=== PATIENT | male | born 1940 | race Caucasian/White ===

== ENCOUNTER 2016-06-06 09:39 | Inpatient (IN) | payer MEDICARE, OTHER ==
[~2016-06-06] VITALS: Ht 170.2 cm; Wt 80.0 kg
--- NOTE | ~2016-06-06 | ENPV ---
Vascular Upper Extremities Veins Procedure Demographics Patient Name ELIZABETH LOMELI Date of Study 06/06/2016 Patient Number [id number] Gender Male Date of 1940 Age 76 Visit Number [id number] Height 67 Accession Number [id number] Weight 167 Referring Nitish Santos MD Physician Physician Physician Ordering Physician Pily Rubin MD Appliance Fixer Managed Care Provider Jani Rockwell T, [facility] Conclusions Summary TECHNIQUE: The deep and superficial veins of the upper extremity on the right were evaluated with pitts scale utilizing compression and augmentation, and evaluation of phasic flow using spectral Doppler and color flow FINGDINGS: Deep and superficial veins of the right upper extremity show normal color flow and compressibility without thrombosis. IMPRESSION: NEGATIVE RIGHT UPPER EXTREMITY VENOUS DOPPLER. Procedure Type of Study: Veins:Upper Extremities Veins, Upper Extremity Right. Indications for Study:Swelling. Patient Status:STAT. Study Location:ER. Technical Quality:Adequate visualization. - Preliminary reported to:Ling HUDSON in ER 1200. Velocities are measured in cm/s ; Diameters are measured in cm Right UE Vein Measurements 2D and Doppler Measurements + + + + +--------+--------+ !Location !Visualized !Compressibility !Thrombosis !Signal !Reflux ! + + + + +--------+--------+ !IJV !Yes !Yes !None !Phasic ! ! + + + + +--------+--------+ !SCV !Yes !Yes !None !Phasic ! ! + + + + +--------+--------+ !Innominate !Yes !Yes !None !Phasic ! ! + + + + +--------+--------+ !Axillary !Yes !Yes !None !Phasic ! ! + + + + +--------+--------+ !Brachial !Yes !Yes !None !Phasic ! ! + + + + +--------+--------+ !Radial !Yes !Yes !None !Phasic ! ! + + + + +--------+--------+ !Ulnar !Yes !Yes !None !Phasic ! ! + + + + +--------+--------+ !Basilic !Yes !Yes !None !Phasic ! ! + + + + +--------+--------+ !Cephalic !Yes !Yes !None !Phasic ! ! + + + + +--------+--------+ Left UE Vein Measurements 2D and Doppler Measurements + + + + +--------+ + !Location !Visualized !Compressibility !Thrombosis !Signal !Reflux ! + + + + +--------+ + !IJV !Yes !Yes !None !Phasic ! ! + + + + +--------+ + Signature dtt: Ramesh Rangel dtd: 06/06/16 1116 Physician Self Edit
--- NOTE | ~2016-06-06 | HP ---
PATIENT'S NAME: ELIZABETH LOMELI [facility] AGE: 76 Y [address] ROOM: [address] [address] LOCATION: [facility] ADMIT DATE: 06/06/2016 History & Physical DISCHARGE DATE: FAMILY PHYSICIAN: EMA BUCK MD ATTENDING PHYSICIAN: WANDER JOYNER DATE OF SERVICE: PRIMARY CONCERN: "Feeling sick." HISTORY OF PRESENT ILLNESS: This is a 76-year-old male, who is brought into the ER by a family member after the patient has been complaining of feeling sick. The patient reports that for the last 3 days that he has been having nausea and vomiting and has not been able to keep anything down with loss of appetite and progressive weakness since then, such that he has been in bed for the last 3 days. The patient denies fever, also notes some generalized headache for the last couple of days. Family reports that on May 24, 2016, the patient was admitted to [facility] for about 3 days. During which time, he was treated for right upper extremity cellulitis as well as bladder infection, Enterococcus faecalis from the records, and they report that the patient is still currently on antibiotics, which they discharged him home on. Family reports that his presenting symptom right now is similar to what he presented with on May 24, 2016, with swelling of his right upper extremity and just not feeling well with loss of appetite. The patient denies abdominal pain. He denies chest pain. He denies cough. The patient was also seen outside at [facility] by Dr. Avalos for shortness of breath, so family reports that since the month of April, the patient has cruz in the healthcare setting as he is the one currently taking care of his , who is on admission. The patient also notes some dizziness. Denies lightheadedness. Denies any syncope. REVIEW OF SYSTEMS: The 13 elements of review of systems were asked and as documented in the HPI. The others are negative. PAST MEDICAL HISTORY: Includes diabetes type 2, coronary artery disease, essential hypertension, peripheral vascular disease, lumbar spinal stenosis, dyslipidemia, and asthma. PAST SURGICAL HISTORY: Includes right below-knee amputation; CABG, status post stent; surgery to the right hand. SOCIAL HISTORY: PATIENT'S NAME: ELIZABETH LOMELI [facility] AGE: 76 Y [address] ROOM: [id number] [place], [place] [address] LOCATION: [facility] ADMIT DATE: 06/06/2016 History & Physical DISCHARGE DATE: FAMILY PHYSICIAN: EMA BUCK MD ATTENDING PHYSICIAN: WANDER JOYNER The patient lives with his . He is a early. Denies use of alcohol or smoking. FAMILY HISTORY: His mother is alive. She is 97, has some dementia. Father at age of 78 and some heart problem. PHYSICAL EXAMINATION: VITAL SIGNS: In the ER, temperature 101.4, pulse 92, respiratory rate 24, blood pressure 122/56. GENERAL: Reveals an elderly male, who appears older than his stated age. He is alert, awake, oriented x3, not in any form of painful distress. NEUROLOGIC: Cranial nerves 2 through 12 intact bilaterally. Sensory is intact bilaterally. Power is in both upper extremities 5/5, also in both lower extremities. HEENT: Normocephalic, atraumatic. Pupils equal and reactive to light bilaterally. Pharynx is normal. Mucosa is moist. Ears: No obvious ear discharge or drainage. NECK: Supple. No area of tenderness. No lymphadenopathy. CARDIOVASCULAR SYSTEM: Normal S1 and S2. Regular rate and rhythm. CHEST: Decreased breath sounds in bilateral bases. ABDOMEN: Soft, nondistended. No area of tenderness. No palpable organomegaly. Some left lower quadrant tenderness on deep palpation, and he also got lower quadrant hernia. EXTREMITIES: Right below-knee stump. Right upper extremity, right hand, and forearm is obviously swollen. Swelling is more involving the right hand, mildly warm, appears red. No tenderness. SKIN: No rash or skin breakdown. LABORATORY DATA: On admission, ABG: pH of 7.49, pCO2 of 29, pO2 of 59, bicarb 22.1, sat 92. WBC 14.9, H and H are 12.2 and 35.7, platelets 319. Sodium 130, potassium 4.1, chloride 96, CO2 of 23, calcium 9.4, creatinine 1.8, BUN 13, glucose 144. ALT 20, AST 14, albumin 2.5, alkaline phosphatase 56, total bilirubin 0.8, anion gap 15.1, hemoglobin A1c is 8.0. UA: pH 6.0, bacteria few, wbc's 0-2. Procalcitonin 2.56. CRP 21.9. MICROBIOLOGY DATA: Blood culture is pending. Stool for C. diff is negative. Stool for ova and parasite is negative. RADIOLOGY DATA: Chest x-ray, borderline heart stable, nonactive, no pneumonia or CHF. ASSESSMENT AND PLAN: PATIENT'S NAME: ELIZABETH LOMELI [facility] AGE: 76 Y [address] ROOM: [place] [address] LOCATION: [facility] ADMIT DATE: 06/06/2016 History & Physical DISCHARGE DATE: FAMILY PHYSICIAN: EMA BUCK MD ATTENDING PHYSICIAN: WANDER JOYNER This is a 76-year-old male, who comes in with nausea and vomiting. 1. Severe sepsis, present on admission. We will observe the patient in the ICU. His blood pressure, though his systolic is low; however, his MAP is about 70. We will monitor him in the ICU should in case his blood pressure bottoms out, and he will require pressors. The patient has received 1-1/2 L of normal saline bolus. Source of infection right now is really not clear, however, probably could be from his right upper extremity cellulitis possibly, possibly from a pneumonia or even possibly from recurrent urinary tract infection. Cultures are pending. 2. Acute hypoxic respiratory failure, unknown etiology. May be secondary to his chronic obstructive pulmonary disease or may be secondary to a pneumonia. We will try and titrate down on the oxygen. We will continue him on ertapenem and Zyvox. 3. Right upper extremity swelling, possibly this may be from cellulitis. We will get an MRI of his extremity given his prior history of surgery to rule out any osteomyelitis. 4. Diabetes type 2 with hypoglycemia. For now, we will put the patient on some NovoLog sliding moderate scale. 5. Nausea and vomiting, present on admission, unknown etiology. We will try and control this with Zofran, and I will also get a CT of his abdomen and also a CT of his chest to further evaluate for etiology of the nausea, vomiting, and shortness of breath. 6. Coronary artery disease, status post history of CABG with angina, stable, present on admission. 7. Paroxysmal atrial fibrillation, rate controlled. 8. Hyponatremia, present on admission, possibly this may be from nausea. We will correct it. We will put the patient on some normal saline. 9. Acute kidney injury, present on admission. This probably is prerenal from his nausea and vomiting, which has been on for the past 3 days and some diarrhea this morning. We will gently hydrate the patient and monitor his kidney function closely. 10. Chronic obstructive pulmonary disease without exacerbation, stable. He is requiring 3 L of oxygen. We will continue to monitor. The line of management was explained to the patient and family, who are present at bedtime and their questions were answered, and they had no further questions at this time. WANDER JOYNER MD ODO/mahnazl PATIENT'S NAME: ELIZABETH LOMELI [facility] AGE: 76 Y [address] ROOM: [place] [address] LOCATION: [facility] ADMIT DATE: 06/06/2016 History & Physical DISCHARGE DATE: FAMILY PHYSICIAN: EMA BUCK MD ATTENDING PHYSICIAN: WANDER JOYNER /[id number] D: T: 627 HISTORY & PHYSICAL
--- NOTE | ~2016-06-06 | ECHO ---
Transesophageal Echocardiography Report (SCOTTIE) Demographics Patient Name ELIZABETH LOMELI Date of Study 06/08/2016 Patient Number [id number] Visit Number [id number] Date of 1940 Room Number I1597TM Gender Male Number Age 76 year(s) Referring Talbert Trae Henry Head Insulation Board Saw Operator Live [place]anca RVT Physician MD Gerard Au MD Physician Interpreting Marly Au Oil Field Operator Physician MD Supervising Ordering MD/MLP Physician Nurse Stress Desk Lieutenant Conclusions Summary No evidence of valvular vegetations. Mild MAC. The AV is moderately sclerotic with restricted opening. Calcific changes in the non coronary cusp. No obvious vegetations on AV. No AI. MV with mild degenerative changes. Mild MR. TV and PV are grossly normal without any valvular vegetations. Normal LV/RV size and systolic function. Procedure Type of Study SCOTTIE procedure Procedure Date Date: 06/08/2016 Start: 04:34 PM Study Location: Inpatient Portable Technical Quality: Adequate visualization Indications:Endocarditis. Appropriate Use Criteria: 9 Patient Status: Routine HR: 72 bpm BP: 123/59 mmHg Findings Left Atrium There is no thrombus in the left atrial appendage. There is no evidence of patent foramen ovale or atrial septal defect by color Doppler. Miscellaneous The patient was brought to the [facility] lab in the fasting state after informed consent was obtained in the written and verbal format. Bite block was placed by ma. Once adequate anesthesia was obtained with anesthesia guidance with propofol sedation the SCOTTIE probe was placed by me down into the stomach. It was pulled back slightly after a few views were obtained in the transgastric level to the transesophageal position where the majority of the case was carried out. At the end of the case the probe was rotated and withdrawn. Patient tolerated the procedure well. Contractility Score LV regional wall motion:(0-Non visualized 1-Normal 2-Hypokinesis 3-Akinesis 4-Dyskinesis 5-Aneurysm) Signature dtt: CHRIS RODGERS dtd: 06/08/16 1634 Physician Self Edit
--- NOTE | ~2016-06-06 | DS ---
PATIENT'S NAME: ELIZABETH LOMELI [facility] AGE: 76 Y [address] ROOM: [address] [place], [place] [address] LOCATION: [facility] ADMIT DATE: 06/06/2016 Discharge Summary DISCHARGE DATE: 06/11/2016 FAMILY PHYSICIAN: Trae Talbert MD ATTENDING PHYSICIAN: Jessica Gee PRINCIPAL DIAGNOSES: 1. Severe sepsis, secondary to an unknown etiology. 2. Asthma exacerbation. 3. Acute kidney injury, now resolved. 4. Coronary artery disease, status post coronary artery bypass graft, stable. 5. Type 2 diabetes mellitus. 6. Peripheral vascular disease, status post right above-knee amputation. HOSPITAL COURSE: A 76-year-old very pleasant gentleman was brought into the emergency department to the [facility] with the chief complaint of feeling weak and having fever and chills. On initial evaluation, on lab work, he had evidence of severe sepsis with the white count as high as 16. His creatinine was also elevated at that time. Procalcitonin was done and it was at 4.71. A chest x-ray was done, which did not reveal any evidence of pneumonia. A urinalysis was done, which did not reveal any evidence for urinary tract infection. He was volume resuscitated with intravenous fluids, but did not require any pressors. He was started on broad-spectrum antibiotics including vancomycin and ertapenem. Infectious Disease consultation was obtained and he was narrowed down to ertapenem and doxycycline. He progressed well during the course of the hospitalization; and on day of discharge, he was stable to be discharged. His asthma control was not optimal and we started him on inhalation therapy in addition to theophylline and chronic prednisone. His JENNYFER resolved toward the end of the hospitalization. He had an injury to the right head with swelling. A DVT study was done, which excluded any deep venous thrombosis. An Orthopedic consultation was obtained and they recommended Rusty wrap as well as p.r.n. ice, which did help. We were not able to identify any organism from the sputum or from the urine. CT of the chest was done on admission to the hospital showed evidence of previous cardiac surgery, some aortic tortuosity and ectasia, otherwise normal. DISCHARGE MEDICATIONS: Include: 1. Clindamycin 600 mg p.o. 1 time p.r.n. before going to the dentist. 2. Allopurinol 300 mg p.o. everyday. 3. Betamethasone 1 application topical twice daily. 4. Plavix 75 mg p.o. everyday. 5. Fentanyl 25 mg transdermal every 72 hours. 6. Insulin glargine 28 units subcu everyday. PATIENT'S NAME: ELIZABETH OLMELI [facility] AGE: 76 Y [address] ROOM: [place] [address] LOCATION: [facility] ADMIT DATE: 06/06/2016 Discharge Summary DISCHARGE DATE: 06/11/2016 FAMILY PHYSICIAN: Trae Talbert MD ATTENDING PHYSICIAN: Jessica Gee 7. Isosorbide 30 mg p.o. everyday. 8. Metformin 1000 mg p.o. twice daily. 9. Montelukast 10 mg p.o. every night at bedtime. 10. Prednisone 10 mg p.o. twice daily. 11. Terazosin 10 mg p.o. every night at bedtime. 12. Theophylline 300 mg p.o. everyday. 13. Spironolactone 25 mg p.o. everyday. 14. Many Farms 10/325 1 tablet p.o. every 6 hours. 15. Ondansetron 8 mg p.o. every 8 hours p.r.n. for nausea. 16. Artificial Tears. 17. New medications include albuterol q.4 h. p.r.n. inhalation for shortness of breath, Symbicort 160/4.5 mcg inhalation b.i.d. 2 puff, Spiriva 18 mcg 1 capsule inhalation once daily, doxycycline 100 mg p.o. b.i.d. for 4 days. FOLLOW UP: Because of his longstanding uncontrolled asthma for which he has been using theophylline as well as chronic steroids, I would recommend Pulmonary follow up so his asthma medication can be optimized. He also need the sleep study outpatiently to detect any obstructive sleep apnea. DISCHARGE ACTIVITY: As tolerated. DIET: Regular diet. MD LOBITO SOLANO/josef /[id number] d: 06/12/16 0237 t: 06/19/16 1507, DISCHARGE SUMMARY
--- NOTE | ~2016-06-06 | ER ---
PATIENT'S NAME: ELIZABETH OTT [facility] AGE: 76 Y [address] ROOM: [place] [address] LOCATION: GICU ADMIT DATE: 06/06/2016 ER/Outpatient Report DISCHARGE DATE: FAMILY PHYSICIAN: EMA TALBERT MD ATTENDING PHYSICIAN: WANDER JOYNER CHIEF COMPLAINT: General malaise, possible pneumonia. HISTORY OF PRESENT ILLNESS: Mr. Ott has not been feeling well. He was admitted to [facility] few days to weeks ago. He had been having some swelling of his right hand. He was treated for infection of that as well as possible UTI. He had been seeing Dr. Talbert, his primary care physician, in the interim. He had otherwise been doing okay, but just does not feel like he is doing okay now. He has had some vomiting today in addition to pain mostly in his right hand and the right side of his body. He denies any other symptoms. He has been having some fever and chills and some loose stool. He has not really taken anything for this other than his prescription medications, please see attached list. PAST MEDICAL HISTORY: Documented on the record and reviewed by me. SOCIAL HISTORY: Documented on the record and reviewed by me. MEDICATIONS: Documented on the record and reviewed by me. ALLERGIES: DOCUMENTED ON THE RECORD AND REVIEWED BY ME. REVIEW OF SYSTEMS: All systems were reviewed and negative except as noted in the HPI. PHYSICAL EXAMINATION: VITAL SIGNS: Blood pressure is 122/56, pulse is 92, respiratory rate is 24, temperature is 101.4, and SpO2 is 99% on room air. GENERAL: An age-appropriate male, frail appearance, resting on the exam table, in mild distress with cough. No outward signs of pain. NEUROLOGIC: Awake and alert. GCS is grossly 15. Follows commands in all extremities. He is oriented and speaking well. HEENT: Normocephalic and atraumatic. The eyes are PERRL. The oropharynx is PATIENT'S NAME: ELIZABETH OTT [facility] AGE: 76 Y [address] ROOM: [place] [address] LOCATION: [facility] ADMIT DATE: 06/06/2016 ER/Outpatient Report DISCHARGE DATE: FAMILY PHYSICIAN: EMA TALBERT MD ATTENDING PHYSICIAN: WANDER JOYNER grossly clear. No erythema or exudates. Edentulous, upper. CHEST: Heart is tachycardic. Irregularly irregular with no obvious murmurs. Lungs are notable for some mild crackles at the bases, but generally clear. ABDOMEN: Diffusely mildly tender with no focal areas of tenderness or masses. No rebound or guarding. BACK: Grossly normal to inspection and palpation. No CVA tenderness. : Normal male genitalia. No obvious infections. EXTREMITIES: The right upper extremity is notable for marked edema and mild erythema, poorly demarcated and delineated, slightly tender to palpation throughout. Sensation slightly diminished, otherwise normal. Right lower extremity notable for BKA. No evidence of infection of the stump. Remainder of the extremities are unremarkable. SKIN: Otherwise grossly intact. LABORATORY DATA AND X-RAYS: Notable for the following. ESR is 88. Urinalysis not consistent with infection, 0 to 2 wbc's, 0 to 2 epithelial cells, few bacteria, no nitrites on exam. Stool screen negative for Giardia, Cryptosporidium, white blood cells, or blood. CMS is notable for leukocytosis of 14.9, predominant elevation of neutrophils with a left shift. INR is 1.15. Amylase and lipase 28 and 99. Troponin is below detectable threshold. CRP is 21.9. Procalcitonin is 2.56. Blood gas; pH of 7.49, pCO2 is 29, pO2 is 59, bicarb is 22.1, CO2 is 23, FiO2 is 21%, and lactate is 1.6. CMS is notable for creatinine of 1.8, GFR of 37, and sodium of 130. LFTs are grossly unremarkable. EKG reveals what appears to be a right bundle pattern with atrial fibrillation versus sinus tach with multiple PACs. No significant change compared to prior EKG from 06/05/2015. Chest x-ray without focal infiltrate per my read. Right upper extremity venous Doppler is negative per Radiology. IMPRESSION: 1. Severe sepsis. 2. Respiratory alkalosis with metabolic compensation. 3. Tachypnea. 4. Atrial fibrillation, with rapid ventricular response, not hypotensive. 5. Acute kidney injury. EMERGENCY DEPARTMENT COURSE: The patient was seen and evaluated as above. The patient was given Tylenol and fluids. We obtained records from Dr. Talbert and [facility], compared to his current presentation to those. He does have acute kidney injury. Based on his white blood cell count with his elevated ESR, CRP, and procalcitonin, we are presuming sepsis at this point. The exact source is unclear. The right upper extremity does not exactly fit cellulitis and this process has been chronic. DVT was excluded. His abdomen exam is PATIENT'S NAME: ELIZABETH OTT [facility] AGE: 76 Y [address] ROOM: [address] [address] LOCATION: [facility] ADMIT DATE: 06/06/2016 ER/Outpatient Report DISCHARGE DATE: FAMILY PHYSICIAN: EMA TALBERT MD ATTENDING PHYSICIAN: WANDER JOYNER very nonfocal and nonsurgical at this time. With his current renal function as it is, CT is not advised. He was given ertapenem and linezolid for broad- spectrum antibiotics. After 1 L of volume resuscitation, the patient began to develop some worsening crackles at the bases of his lungs and thus bolus resuscitation was ceased. He did have some lower blood pressures at that time, but remained with systolic blood pressures above 90. He will ultimately be taken to the intensive care unit under the care of Dr. Joyner, hospitalist, for further evaluation and treatment of his presumed sepsis. He did get some Zofran for some vomiting in the emergency department as well. All questions were answered prior to admission. MD MILTON HENAO/josef /[id number] d: 06/07/165 t: 06/14/16 2153, OUTPATIENT REPORT
--- NOTE | ~2016-06-06 | CON ---
PATIENT'S NAME: ELIZABETH OTT [facility] AGE: 76 Y [address] ROOM: [address] [address] LOCATION: GICU ADMIT DATE: 06/06/2016 Consultation DISCHARGE DATE: FAMILY PHYSICIAN: EMA BUCK MD ATTENDING PHYSICIAN: WANDER JOYNER DATE OF CONSULTATION: 06/08/2016 CHIEF COMPLAINT: Right upper extremity pain and swelling. HISTORY OF PRESENT ILLNESS: Mr. Ott is a pleasant 76-year-old gentleman who was brought into the emergency room by family member after the patient reports that he is feeling sick. He reports he has chronic medical problems. He reports that for the last 2 days been having nausea and vomiting and not able to keep anything down. The patient reports that approximately 3 to 4 years ago, he had a high pressure injection injury to the right hand that was treated by Dr. Johnston with surgery and subsequently were resolved. Family reports on 05/24, he was admitted to [facility] for approximately three days but he was treated for a UTI and cellulitis of the arm. Despite swelling in the arm, which the patient reports is more swollen than usual. He reports that is otherwise that the right upper extremity is more swollen than usual. REVIEW OF SYSTEMS: A 10-point review of system otherwise mentioned above. The patient states it was musculoskeletal in nature. Pertains to his right upper extremity. There is swelling and cellulitis of the right arm. PAST MEDICAL HISTORY: 1. Type 2 diabetes. 2. Coronary artery disease. 3. Hypertension. 4. Peripheral vascular disease. 5. Lumbar spinal stenosis. 6. Dyslipidemia. 7. Asthma. PAST SURGICAL HISTORY: Includes: 1. Right glenoid below-knee amputation. 2. CABG status post stent and what appeared to be incision and drainage of the patient's right hand wrist and forearm from previous high-pressure injection injury to the right upper extremity. PATIENT'S NAME: ELIZABETH OTT [facility] AGE: 76 Y [address] ROOM: [id number] [place], [place] [address] LOCATION: GICU ADMIT DATE: 06/06/2016 Consultation DISCHARGE DATE: FAMILY PHYSICIAN: EMA BUCK MD ATTENDING PHYSICIAN: OLADEJI,WANDER D FAMILY HISTORY: The patient lives with his . He is a early. He denies any alcohol tobacco or illicit drug use. His mother is alive. She is 97 and has dementia. His father at the age of 78 and had heart problems. MEDICATIONS: Include: 1. Azactam. 2. Deltasone. 3. Duragesic. 4. Dulera. 5. Florastor. 6. Hytrin. 7. Lactated Ringer's. 8. Levemir. 9. Lovenox. 10. NovoLog. 11. Plavix. 12. Protonix. 13. Singulair. 14. Valisone. 15. Vancomycin. 16. Zyloprim. PHYSICAL EXAMINATION: VITAL SIGNS: Temperature 98.2, respirations 22, heart rate is 74, blood pressure 105/50. GENERAL: The patient is awake, alert, and oriented x3. He is in no acute distress. He is actively conversing with me at the bedside. HEENT: Normocephalic and atraumatic. Extraocular movements are intact. PERRLA. Moist mucous membranes. The oropharyngeal airway is clear. NECK: Supple. Trachea is in the midline. CARDIOVASCULAR: Regular rate and rhythm. ABDOMEN: Soft, nontender, and nondistended. CHEST: Normal symmetric respirations bilaterally. MUSCULOSKELETAL: Right upper extremity focal examination: The patient's right upper extremity reveals he is grossly neurologically intact distally. There is swelling and cellulitis present at the forearm, wrist, and hand. The patient is actively able to range his fingers. He has previously well-healed surgical incisions from previous surgical intervention. There was a good capillary refill in the digits. The patient is actively able to flex and extend the digits. There is full range of motion of the elbow, forearm, wrist, and hand. There is no concern for fluctuance or active wound. Compartments of the arm, forearm, and hand are soft. There is edema in the arm, however. PATIENT'S NAME: ELIZABETH OTT [facility] AGE: 76 Y [address] ROOM: [id number] [place], [place] [id number] LOCATION: [facility] ADMIT DATE: 06/06/2016 Consultation DISCHARGE DATE: FAMILY PHYSICIAN: EMA BUCK MD ATTENDING PHYSICIAN: WANDER JOYNER IMAGING: An MRI of the right upper extremity revealed a normal bone marrow signal with diffuse subcutaneous edema, likely consistent with a cellulitis picture. There is no abscess of flexor and extensor tendon of the finger are present and there is no effusion. Advanced degenerative changes were noted in the first carpometacarpal joint of the thumb. LABORATORY VALUES: CBC reveals a hemoglobin of 9.8, hematocrit 29.3, white blood cell count of 11, platelet count 234. INR of 1.15. Chem 7 is sodium 138, potassium 4.1, chloride 108, CO2 20, BUN of 12, creatinine 0.9, glucose 125. Procalcitonin is elevated at 4.71. ESR is 88, glycosylated hemoglobin is 9. CRP is 21.9. Blood cultures reveal evidence of a coagulase-negative Staphylococcus species. IMPRESSION: 1. Right upper extremity cellulitis. 2. History of previous high-pressure injection injury to right hand and underwent surgical incision and drainage of the forearm, wrist, and hand by Dr. Johnston in the past. 3. Severe sepsis, Staphylococcus bacteremia. PLAN: I had a long discussion with the patient at the bedside regarding the right upper extremity. He definitely has a cellulitis picture. I am going to recommend conservative treatment in terms of rest, ice elevation, and a compressive dressing on the right upper extremity. However, cellulite should be treated with antibiotics. By physical examination, I do not appreciate any concern for deep infection or abscess. The MRI is confirmatory. Unfortunately, the patient has other active medical issues. He is currently bacteremic. We will continue to monitor the patient closely. The nursing staff will apply a compressive dressing and elevate the arm and ice it now. He will continue with adequate pain control as needed. Lovenox may be considered for DVT prophylaxis. MD DAMARIS LONDON/josef /[id number] d: 06/08/16 1441 t: 06/08/16 1839, CONSULTATION REPORT
--- NOTE | ~2016-06-06 | OR ---
PATIENT'S NAME: ELIZABETH LOMELI [facility] AGE: 76 Y [address] ROOM: [address] [address] LOCATION: GICU ADMIT DATE: 06/06/2016 OR/Procedure Report DISCHARGE DATE: FAMILY PHYSICIAN: EMA BUCK MD ATTENDING PHYSICIAN: WANDER JOYNER SURGEON: Valdemar Dave MD DRY DIP WORKER: DATE OF PROCEDURE: 06/07/2016 PROCEDURE: Right IJ central venous catheterization. INDICATION: pressor support and IV access. DESCRIPTION OF PROCEDURE: Informed consent was obtained after explaining risks versus benefit. Right IJ and left IJ was inspected using ultrasonography. Right IJ was selected for catheterization. The patient was prepped in sterile fashion. Anesthesia was achieved with lidocaine 1%. Using real-time ultrasonography, trocar needle was entered into the right IJ with the aspiration of the purple oozing blood. A guidewire was advanced through the needle and needle retrieved. Presence of the guidewire in the IJ was confirmed using ultrasonography. Using blade #10, a ashley was made and the dilator was passed over the guidewire and dilatation was achieved. After retrieving the dilator, 3 lumen central venous catheter was advanced over the guidewire and guidewire was retrieved. Venous central line was secured with the sutures and dressing was placed. No immediate complications noted. Chest x-ray has been ordered. MD LOBITO SOLANO/josef /[id number] d: 06/07/16 2344 t: 06/10/16 1505, OPERATIVE SUMMARY
--- NOTE | ~2016-06-06 | ECHO ---
Transthoracic Echocardiography Report (TTE) Demographics Patient Name ELIZABETH LOMELI Date of Study 06/07/2016 Patient Number [id number] Visit Number [id number] Date of 1940 Room Number A3689OZ Gender Male Number Age 76 year(s) Referring Nitish Figueroa Plate [place] Hand [place] Escalante Physician MD Jesus Pérez [facility], Gerard Figueroa RVT Physician Interpreting Carroll Lee MD Chef Head Physician Supervising Ordering Tenzin Diez MD/NUBIA Physician Nurse Stress Learning Technologist Conclusions Contractility Score Summary Normal Left Ventricular contractility was noted. Summary The estimated left ventricular ejection fraction is 70%. The left ventricle is normal in size . Moderate concentric left ventricular hypertrophy. Diastolic assessment reveals Grade I diastolic dysfunction. The right atrium is mildly dilated. There is mild aortic stenosis by the Continuity Equation. The peak velocity is 2.87 m/s, the mean gradient is 18 mmHg, and the valve area based on the continuity equation is 2.31 cm2, stroke volume index is 43.52 ml/m2. Mild tricuspid regurgitation by color Doppler. There is mild pulmonary hypertension. The pulmonary pressure (RVSP) is 41 mmHg. There is mild aortic stenosis by the Continuity Equation. The peak velocity is 2.87 m/s, the mean gradient is 18 mmHg, and the valve area based on the continuity equation is 2.31 cm2, stroke volume index is 43.52 ml/m2. Echo density noted on aortic valve recommend SCOTTIE if clinically indicated. Procedure Type of Study TTE procedure:2D Echocardiogram, M-Mode, Doppler , Color Doppler. Procedure Date Date: 06/07/2016 Start: 10:47 AM Study Location: Inpatient Portable Technical Quality: Fair Indications:Endocarditis and Acute and subacute bacterial endocarditis. Additional Indications:Bacteremia Appropriate Use Criteria: 9 Patient Status: Routine HR: 108 bpm BP: 126/106 mmHg M-Mode/2D Measurements LV Diastolic Dimension: 4.57 cm LV Systolic Dimension: 2.3 cm LV Septum Diastolic: 1.45 cm LV PW Diastolic: 1.43 cm AO Root Dimension: 2.8 cm Cardiac Output: 8.79 l/min LA Dimension: 4 cm LVOT: 2.4 cm LVOT VTI: 18 cm RV Base: 3.93 cm LV Stroke volume: 81.39 ml RV Length: 6.99 cm TAPSE: 1.94 cm TDI-S': 15.5 cm/s Doppler Measurements AV Peak Velocity: 2.87 m/s MV Peak E-Wave: 0.89 m/s AV Peak Gradient: 32.95 mmHg MV Peak A-Wave: 1.08 m/s AV Mean Gradient: 18 mmHg MV E/A Ratio: 0.83 LVOT Peak Velocity: 1.08 m/s MV Deceleration Time: 285 msec TR Velocity:3.08 m/s PV Peak Velocity: 1.64 m/s TR Gradient:37.95 mmHg PV Peak Gradient: 10.76 mmHg Estimated RAP:3 mmHg Estimated PASP: 40.95 mmHg Estimated RVSP: 41 mmHg A' Septal Velocity: 0.07 m/s E' Septal Velocity: 0.05 m/s A' Lateral Velocity: 0.11 m/s E' Lateral Velocity: 0.08 m/s Findings Left Ventricle The left ventricle is normal in size . Moderate concentric left ventricular hypertrophy. Diastolic assessment reveals Grade I diastolic dysfunction. Right Ventricle Normal right ventricle structure and function. Left Atrium Normal left atrial size. Right Atrium The right atrium is mildly dilated. IVC measures .923 cm with inspiratory collapse. Mitral Valve Mild mitral annular calcification. Trivial mitral regurgitation by color Doppler. Aortic Valve There is mild aortic stenosis by the Continuity Equation. The peak velocity is 2.87 m/s, the mean gradient is 18 mmHg, and the valve area based on the continuity equation is 2.31 cm2, stroke volume index is 43.52 ml/m2. Echo density noted on aortic valve recommend SCOTTIE if clinically indicated. Tricuspid Valve Mild tricuspid regurgitation by color Doppler. There is moderate pulmonary hypertension. The pulmonary pressure (RVSP) is 41 mmHg. Pulmonic Valve The pulmonic valve is not well visualized. Pericardial Effusion No evidence of pericardial effusion. Miscellaneous Visualized portions of the aortic root and ascending aorta appear normal in size. Pleural Effusion No evidence of pleural effusion. Contractility Score LV regional wall motion:(0-Non visualized 1-Normal 2-Hypokinesis 3-Akinesis 4-Dyskinesis 5-Aneurysm) Signature dtt: Jesus Hodges (cardio) dtd: 06/07/16 1047 Physician Self Edit
--- NOTE | ~2016-06-06 | CON ---
PATIENT'S NAME: ELIZABETH LOMELI [facility] AGE: 76 Y [address] ROOM: [place] [address] LOCATION: GICU ADMIT DATE: 06/06/2016 Consultation DISCHARGE DATE: FAMILY PHYSICIAN: EMA BUCK MD ATTENDING PHYSICIAN: WANDER JOYNER DATE OF CONSULTATION: 06/08/2016 REFERRING PHYSICIAN: Wander Joyner MD REASON FOR CONSULTATION: Possible sepsis. SUBJECTIVE: Elizabeth is a pleasant 76-year-old male, whom I was asked see today in consultation by Dr. Joyner for possible sepsis. Elizabeth was admitted on 06/06/2016 with complaint of nausea, vomiting, and generalized malaise for several days. He did not have any fever prior to this admission. He was admitted to [facility] for three days. In May, at which time, he was treated for right upper extremity cellulitis, as well as urinary infection with Enterococcus faecalis. He was apparently discharged on Bactrim and Levaquin. More recently, he has been on nitrofurantoin. At the time of admission, he had a white count of 14.9, and a procalcitonin of 2.56. He was assessed as having possible sepsis, with an unknown source. He was treated with appropriate supportive care, i.e., IV fluids, etc., and has improved significantly. He has been on antibiotics since admission, initially linezolid and ertapenem, then vancomycin and aztreonam. PAST MEDICAL HISTORY: Type 2 diabetes, hypertension, peripheral vascular disease, prior right BKA, prior coronary bypass. ALLERGIES: PENICILLINS, CEPHALOSPORINS. CURRENT MEDICATIONS: See the VIVIEN for complete listing. Antibiotics are as noted above. SOCIAL HISTORY: No significant alcohol or tobacco abuse history to my knowledge. FAMILY HISTORY: Significant for heart disease. REVIEW OF SYSTEMS: A complete review of systems is carried out and was remarkable only as noted. PATIENT'S NAME: ELIZABETH LOMELI [facility] AGE: 76 Y [address] ROOM: [place] [address] LOCATION: GICU ADMIT DATE: 06/06/2016 Consultation DISCHARGE DATE: FAMILY PHYSICIAN: EMA BUCK MD ATTENDING PHYSICIAN: WANDER JOYNER He specifically denied any diarrhea or dysuria. OBJECTIVE: GENERAL: He appeared tired but comfortable and in no acute distress. He appeared nontoxic. VITAL SIGNS: Temperature is 36.78, pulse 75, blood pressure 105/50. HEENT: Posterior pharynx clear, no adenopathy or thyromegaly. Cranial nerves are intact. Neck was supple. CHEST: Scattered rales throughout both lungs. CARDIOVASCULAR: Regular rate and rhythm without S3 or S4. There was a 3/6 holosystolic murmur at the left lower sternal border radiating to the apex. ABDOMEN: Soft, nontender, without hepatosplenomegaly or masses. EXTREMITIES: The right BKA site was unremarkable. There was a tiny abrasion on the dorsal aspect of the left first PIP joint of the foot, without any erythema or drainage. The right ahnd was slightly puffy without significant erytghema, warmth or tenderness. NEUROLOGIC: Strength somewhat diminished, no focal weakness. PSYCHIATRIC: Behavior and affect appropriate. LABORATORY DATA: Creatinine 0.9. Liver function tests normal. Hemoglobin A1c 9.0. White count 11.0. Microbiology: Blood cultures 06/08/2016 pending. Blood cultures x2 06/07/2016 no growth to date. Blood cultures 06/06/2016, Staphylococcus aureus in 1/4 bottles. Stool for C diff on 06/06/2016 negative[address] RADIOLOGY: CT of the chest, abdomen, and pelvis on 06/06/2016 essentially unremarkable, without abscess, pneumonia, etc. IMPRESSION: Possible sepsis, unknown etiology: While he did have an elevated white count on admission, and an elevated procalcitonin, he actually has been afebrile and has had negative blood and urine cultures, with unremarkable urinalysis and negative imaging of the chest, abdomen, and pelvis. Therefore, potential source of infection is unknown. It is possible that he had an adverse reaction to one of his medications, possibly one of the recent antibiotics he was given in the outpatient setting. In any event, he seems clinically improved at this time. Given his rather frail status, I think it is reasonable to continue antibiotics for a limited course for possible sepsis, even without confirmation. PLAN: We will continue with ertapenem for another 5 days, i.e., a 7-day course. Assuming he is improving, he could discharge anytime from my standpoint. PATIENT'S NAME: ELIZABETH LOMELI [facility] AGE: 76 Y [address] ROOM: [place] [address] LOCATION: [facility] ADMIT DATE: 06/06/2016 Consultation DISCHARGE DATE: FAMILY PHYSICIAN: EMA BUCK MD ATTENDING PHYSICIAN: WANDER JOYNER I or one of my colleagues will be glad to see him back in the next 1-2 weeks as needed. I am available to answer any questions by phone at [phone]. Thank you for this consultation. CHERRIE PRABHAKAR MD JSS/modl /[id number] CC: Wander Joyner MD d: 06/08/16 1705 t: 06/09/16 0820, CONSULTATION REPORT
[~2016-06-06 09:39] MED LIST: ACETAMINOPHEN650 M1; ALDACTONE25 MG PO; ALLOPURINOL300 MG PO; BACITRACIN OINT30 GM TOP; CLEOCIN150 MG PO; COLACE100 MG PO; DELTASONE10 MG PO; DURAGESIC 50MC50 MCG TOP; GLUCOPHAGE1000 MG PO; IMDUR30 MG PO; LANTUS SOL100 UNIT/1 SUB-Q; LASIX20 MG PO; LEVEMIR FL100 UNIT/1 SUB-Q; MILK OF MA400 MG/5 M PO; MIRALAX17 GM PO; NORCO 10-325 T1 EACH PO; PERCOCET 5-3251 EACH PO; PLAVIX75 MG PO; RANEXA ER500 MG PO; RANEXA1000 MG PO; SINGULAIR10 MG PO; TERAZOSIN HCL10 MG PO; THEO-24300 MG PO; TYLENOL325 MG PO; ZETIA10 MG PO
[2016-06-06 10:58] LABS: HEMATOCRIT 35.7 % (37.0-53.0); HEMOGLOBIN 12.2 g/dL (11.0-16.0); MCH 29.8 pg (27.0-34.0); MCHC 34.2 gm/dL (32.0-36.5); MCV 87.3 fl (83.0-98.0); MPV 9.7 fl (9.4-12.4); PLATELET COUNT 319 K/uL (150-450); RBC 4.09 M/uL (3.50-5.50); RDW-CV 14.1 % (11.9-14.6); WBC 14.9 K/uL (4.0-11.0)
[2016-06-06 11:01] LABS: INR - (THERAPEUTIC) 1.15 (0.92-1.07); PROTIME 12.1 SECONDS (9.8-11.4)
[2016-06-06 11:02] LABS: BICARBONATE 22.1 mmol/L (18.0-23.0); LACTATE 1.6 mEq/L (0.50-1.60); PCO2 29 mmHg (35-45); PO2 59 mmHg (80-90)
[2016-06-06 11:16] LABS: ALBUMIN 2.5 gm/dL (3.5-5.0); ANION GAP 15.1 (10.0-19.0); CALCIUM 9.4 mg/dL (8.5-10.5); CREATININE 1.8 mg/dL (0.6-1.3); POTASSIUM 4.1 mMol/L (3.7-5.1); TOTAL BILIRUBIN 0.8 mg/dL (0.0-1.5); TOTAL PROTEIN 6.2 g/dL (6.0-8.4)
[2016-06-06 11:46] LABS: ABSOLUTE NEUTROPHIL CT (ANC) 11.8 K/uL (1.4-9.0); BANDED NEUTROPHIL # 0.6 K/uL (0.0-0.1); BANDED NEUTROPHILS % 4 %; LYMPHOCYTE # 1.9 K/uL (0.8-4.0); LYMPHOCYTE % 13 %; MONOCYTE # 1.2 K/uL (0.0-1.0); SEGMENTED NEUTROPHIL # 11.2 K/uL (1.4-9.0); SEGMENTED NEUTROPHIL % 75 %
[2016-06-06 12:12] LABS: BILIRUBIN URINE NEGATIVE (NEGATIVE); BLOOD URINE NEGATIVE /UL (NEGATIVE); COLOR URINE YELLOW (YELLOW); GLUCOSE URINE NEGATIVE (NEGATIVE); KETONE URINE 15 mg/dL (NEGATIVE); LEUKOCYTES URINE 25 /UL (NEGATIVE); NITRITE URINE NEGATIVE (NEGATIVE); PROTEIN URINE 30 mg/dL (NEGATIVE); TURBIDITY URINE CLEAR (CLEAR); UROBILINOGEN URINE NORMAL (NORMAL)
[2016-06-06 12:29] LABS: BACTERIA URINE FEW (NEGATIVE); EPITHELIAL URINE 0-2 #/HPF (NEGATIVE); RBC URINE NEGATIVE #/HPF (NEGATIVE); WBC URINE 0-2 #/HPF (NEGATIVE)
[2016-06-06 12:30] LABS: MUCUS URINE 1+ (NEGATIVE)
[2016-06-06] MEDS ORDERED: BETAMETHASONE V60 ML TOP (18:08)
[2016-06-06] MEDS ORDERED: PLAVIX75 MG PO (18:09)
[2016-06-06] MEDS ORDERED: MACROBID100 MG PO (18:09)
[2016-06-06] MEDS ORDERED: ZOFRAN8 MG PO (18:10)
[2016-06-06] MEDS ORDERED: ARTIFICIAL TEAR15 ML OPHTH (18:10)
[2016-06-06 18:22] LABS: CPK 83 IU/L (35-332)
--- NOTE | 2016-06-06 19:13 | NUR ---
Significant Event: Patient is A&O X3, follows all commands, pupils are equal and reactive. SBP have been low 100's-130's, MAP's 60's-80's. Patient is in Afib with HR 80's-low 100's. Patient is on RA with o2 sats mid to upper 90's. Lung sounds are clear and diminished. Patient has been having nausea. Patient voids per urinal. Follow up:
[2016-06-07 00:42] LABS: CPK 78 IU/L (35-332)
[2016-06-07 05:04] LABS: BASOPHIL % 0.3 %; EOSINOPHIL # 0.2 K/uL (0.0-0.5); EOSINOPHIL % 1.1 %; HEMATOCRIT 33.9 % (37.0-53.0); HEMOGLOBIN 11.2 g/dL (11.0-16.0); IMMATURE GRANULOCYTE # 0.1 K/uL (0.0-0.3); IMMATURE GRANULOCYTE % 0.7 %; LYMPHOCYTE # 1.4 K/uL (0.8-4.0); LYMPHOCYTE % 9.2 %; MCH 29.6 pg (27.0-34.0); MCV 89.4 fl (83.0-98.0); MONOCYTE # 1.2 K/uL (0.0-1.0); MONOCYTE % 8.3 %; NEUTROPHIL # (ANC) 11.9 K/uL (1.4-9.0); NEUTROPHIL % 80.4 %; NRBC % 0 /100WBC (0-0.00); RBC 3.79 M/uL (3.50-5.50); RDW-CV 13.9 % (11.9-14.6); WBC 14.8 K/uL (4.0-11.0)
[2016-06-07 05:07] LABS: PLATELET COUNT 249 K/uL (150-450)
[2016-06-07 05:25] LABS: ALBUMIN 2.1 gm/dL (3.5-5.0); ANION GAP 13.8 (10.0-19.0); CALCIUM 8.3 mg/dL (8.5-10.5); CREATININE 1.4 mg/dL (0.6-1.3); MAGNESIUM 1.6 mg/dL (1.8-2.6); POTASSIUM 3.8 mMol/L (3.7-5.1); TOTAL PROTEIN 5.5 g/dL (6.0-8.4)
[2016-06-07 05:29] LABS: TOTAL BILIRUBIN 0.6 mg/dL (0.0-1.5)
--- NOTE | 2016-06-07 05:49 | NUR ---
PT RESTING THIS SHIFT. PIV X2 INTACT AND PATENT WITH NS RUNNING AT 100ML/HR. DECREASED N/V THIS SHIFT BUT PERSISTENT DESPITE ZOFRAN IVP GIVEN X2 THIS SHIFT. DECREASED AMOUNTS OF EMISIS SHIFT HAS PROGRESSED, NO EMESIS SINCE APPROX 2300. BP REMAIN STABLE, SBP 100S-120S, MAPS 70S-80S. FEBRILE AT TIMES. DECREASED UOP NOTED. VOIDS PER URINAL. PULSES IMPROVING SHIFT PROGRESSED. GAURAV LOYA RN
--- NOTE | 2016-06-07 09:40 | NUR ---
PT SCREENED D/T (+) MST. PT DENIES WT LOSS PRIOR TO ADMIT. NO NUTRITION-RELATED DIAGNOSIS AT THIS TIME. WILL ASSIST NEEDED.
[2016-06-07 13:57] LABS: BICARBONATE 22.4 mmol/L (18.0-23.0); LACTATE 0.8 mEq/L (0.50-1.60); PCO2 37 mmHg (35-45); PO2 64 mmHg (80-90)
[2016-06-07 16:59] LABS: HEMATOCRIT 30.3 % (37.0-53.0); MCH 29.7 pg (27.0-34.0); MCV 89.9 fl (83.0-98.0); PLATELET COUNT 215 K/uL (150-450); RBC 3.37 M/uL (3.50-5.50); RDW-CV 14.1 % (11.9-14.6); WBC 14.4 K/uL (4.0-11.0)
[2016-06-07 17:15] LABS: ANION GAP 13.2 (10.0-19.0); BLOOD UREA NITROGEN 11 mg/dL (6-24); CHLORIDE 104 mMol/L (96-110); CO2 24 mMol/L (22-32); CREATININE 1.1 mg/dL (0.6-1.3); POTASSIUM 4.2 mMol/L (3.7-5.1); SODIUM 137 mMol/L (135-145)
[2016-06-07 17:16] LABS: ESTIMATED GFR (MDRD EQUATION) > 60
--- NOTE | 2016-06-07 17:35 | NUR ---
SIGNIFICANT EVENT: PATIENT ALERT, ORIENTED X3. OPENS EYES SPONTANEOUSLY AND TO VOICE. PUPILS EQUAL AND REACTIVE. PATIENT IS HARD OF HEARING. BILATERAL HEARING AIDS IN AT ALL TIMES. PATIENT DENIES ANY NUMBNESS, TINGLING, OR PAIN. PATIENT MEDICATION, FENTANYL PATCH APPLIED PER MD ORDER TO L) FLANK AREA, R) FLANK PATCH REMOED AND DISPOSED OF. PATIENT MOVES ALL 4 EXTREMITIES SPONTANEOUSLY AND TO COMMANDS. GENERALIZED WEAKNESS, EQUAL STRENGTH THROUGHOUT. BELOW THE KNEE AMPUTATION IN R) LOWER EXTREMITY, PRIOR TO THIS HOPSPITALIZATION, NO COMPLICATIONS. PATIENT DENIES ANY HEADACHES. PURPOSEFUL WITH ALL EXTREMITIES. APPROPRIATELY CONVERSATIONAL. PATIENT HAS BEEN IN AFIB RHYTHM, SINUS BEATS AT TIMES, MD AWARE. HR THROUGHOUT MOST OF THE SHIFT 70-80S. AROUND 1400, PATIENT BECAME TACHY CARDIC AND HYPOTENSIVE, DR NUR AWARE, WAS AT BEDSIDE, HR BACK TO BASE LINE NOW. PULSES THREADY THROUGHOUT. GENREALIZED EDEMA R) UPPER EXTREMITY MOST EDEMATOUS. R) IJ INSERTED AT BEDSIDE, (3) LUMEN. LEVOPHED AVAILABLE TO KEEP MAP>65. BP CURRENTLY STABLE. SBP>90 AND MAP>65. LR INFUSING AT 100ML/HR. 500 ML LR BOLUS GIVEN, HYPOTENSION RESOLVED POST BOLUS. AFEBRILE CURRENLTY, MAX TEMP TODAY OF 101.6, NOW 97.5. PATIENT ON 2L NASAL CANNULA, SATS MID TO LOWER 90S. BOWEL SOUNDS PRESENT, NO BM TODAY. DECREASED APETITE NOTED. PATIENT VOIDS PER URINAL, 450 ML OUTPUT. NO NEW SKIN ISSUES NOTED. SCOTTIE IN AM. 0830. ANESTHESIA AWARE. CONSENT FORM TO BE COMPLETED. RISKS AND BENEFITS TO BE COMPLETED. ID CONSULT IN AM
[2016-06-07 17:52] LABS: ABSOLUTE NEUTROPHIL CT (ANC) 13.7 K/uL (1.4-9.0); BANDED NEUTROPHIL # 1.3 K/uL (0.0-0.1); BANDED NEUTROPHILS % 9 %; LYMPHOCYTE # 0.4 K/uL (0.8-4.0); LYMPHOCYTE % 3 %; MONOCYTE # 0.3 K/uL (0.0-1.0); SEGMENTED NEUTROPHIL # 12.4 K/uL (1.4-9.0); SEGMENTED NEUTROPHIL % 86 %
--- NOTE | 2016-06-08 04:21 | NUR ---
Significant Event: Patient is drowsy and difficult to arouse at times. Very hard of hearing. Awakens to voice, otherwise sleeps. No c/o pain. VSS. No family or visitors. Turn q2h. Voids per urinal. NPO since midnight. Follows commands. 1-2L NC, has periods of apnea. 1-2L NC has maintained his O2 sats>90%. Otherwise drops to mid 80's% O2 sats. Follow up: Plan for SCOTTIE this AM.
--- NOTE | 2016-06-08 04:24 | NUR ---
Significant Event: PATIENT ORIENTED X3, FOLLOWS COMMANDS. AWAKENS TO VERBAL/TACTILE STIMULATION. AFEBRILE. EDEMA NOTED TO RIGHT UPPER EXTREMITY. CONTINUES ON 2L PER NASAL CANNULA. POOR APPETITE. BOWEL SOUNDS PRESENT. VOIDING PER URINAL. RIGHT IJ TRIPLE LUMEN, 2 PIV SALINE LOCKED. LR AT 75ML/HR. REPORT GIVEN TO TRISTAN MOISE TO ASSUME CARES. Follow up:
[2016-06-08 04:36] LABS: ANION GAP 14.1 (10.0-19.0); BLOOD UREA NITROGEN 12 mg/dL (6-24); CALCIUM 7.9 mg/dL (8.5-10.5); CHLORIDE 108 mMol/L (96-110); CO2 20 mMol/L (22-32); CREATININE 0.9 mg/dL (0.6-1.3); ESTIMATED GFR (MDRD EQUATION) > 60; POTASSIUM 4.1 mMol/L (3.7-5.1); SODIUM 138 mMol/L (135-145)
[2016-06-08 04:43] LABS: HEMATOCRIT 29.3 % (37.0-53.0); HEMOGLOBIN 9.8 g/dL (11.0-16.0); MCHC 33.4 gm/dL (32.0-36.5); MCV 89.6 fl (83.0-98.0); PLATELET COUNT 234 K/uL (150-450); RBC 3.27 M/uL (3.50-5.50); RDW-CV 13.8 % (11.9-14.6)
[2016-06-08 05:22] LABS: ABSOLUTE NEUTROPHIL CT (ANC) 10.6 K/uL (1.4-9.0); BANDED NEUTROPHIL # 1.4 K/uL (0.0-0.1); BANDED NEUTROPHILS % 13 %; LYMPHOCYTE # 0.3 K/uL (0.8-4.0); LYMPHOCYTE % 3 %; MONOCYTE # 0.1 K/uL (0.0-1.0); SEGMENTED NEUTROPHIL # 9.1 K/uL (1.4-9.0); SEGMENTED NEUTROPHIL % 83 %
--- NOTE | 2016-06-08 09:26 | NUR ---
Significant Event:A/O X 3, VERY [place], even with bilateral hearing aids in use. Glasses on. UP to bathroom and then to the recliner with 2 assist, wheeled walker and gait belt. NSR. R) hand 3+ edema, elevated on a pillow, slighlty red. NPO for SCOTTIE, BM this AM. Voids without problems. NO c/o pain. Scab to the back of the R) elbow. Redness ot bottom, and used Moisture barrier. Complete bath and oral cares. Stump elevated on pillow. Follow up:SCOTTIE this afternoon with Dr MA, [place] is aware.
[2016-06-08 13:09] LABS: BILIRUBIN URINE NEGATIVE (NEGATIVE); BLOOD URINE NEGATIVE /UL (NEGATIVE); COLOR URINE YELLOW (YELLOW); GLUCOSE URINE NEGATIVE (NEGATIVE); KETONE URINE 150 mg/dL (NEGATIVE); LEUKOCYTES URINE NEGATIVE /UL (NEGATIVE); NITRITE URINE NEGATIVE (NEGATIVE); PROTEIN URINE 15 mg/dL (NEGATIVE); SPEC GRAVITY URINE 1.025 (1.003-1.035); TURBIDITY URINE CLEAR (CLEAR); UROBILINOGEN URINE NORMAL (NORMAL)
--- NOTE | 2016-06-08 13:20 | NUR ---
Significant Event:A/O X 3, VERY [place], even with bilateral hearing aids in use. Glasses on. UP to bathroom and then to the recliner with 2 assist, wheeled walker and gait belt. NSR. R) hand 3+ edema, elevated on a pillow, slighlty red. NPO for SCOTTIE, BM this AM. Voids without problems. NO c/o pain. Scab to the back of the R) elbow. Redness ot bottom, and used Moisture barrier. Complete bath and oral cares. Stump elevated on pillow. Follow up:SCOTTIE this afternoon with Dr MA, [employer] is aware. Voided a second time and sample sent down for UA. PT here to transfer with gait belt and wheeled walker back to bed for afternoon nap. R) hand wrappped with MINNIE, elevated on pillows and iced. Swelling has decreased with more wrinkling of the skin in the thumb.
[2016-06-08 13:37] LABS: BACTERIA URINE FEW (NEGATIVE); MUCUS URINE 3+ (NEGATIVE); RBC URINE NEGATIVE #/HPF (NEGATIVE)
--- NOTE | 2016-06-08 14:37 | NUR ---
Introduced self and role of care management to pt. He states [place] lives on the farm in [place]. He does have a but she is currently just admitted to [facility] from having surgery for cancer. He states he has a son nearby and another one down in [place], well total of 5 kids. He states he was down there with her for over 30 days and got rundown. 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 I explained I will follow and see how he does and will get therapy ordered. WIll continue to follow.
--- NOTE | 2016-06-09 04:52 | NUR ---
Significant Event: AOx3. VSS. Sinus rhythm. Placed on 2L/NC while sleeping, lung sounds clear and clear and diminished in bases. Bowel sounds active, tolerating diet well. BM x1 this shift. Voids per urinal, adequate UOP. No new skin changes. Afebrile. R)IJ and PIVx2 intact, LR infusing at 75ml/hr. Follow up: Transfer, continue.
[2016-06-09 04:56] LABS: BLOOD UREA NITROGEN 17 mg/dL (6-24); CALCIUM 7.8 mg/dL (8.5-10.5); CHLORIDE 108 mMol/L (96-110); CO2 25 mMol/L (22-32); CREATININE 0.9 mg/dL (0.6-1.3); ESTIMATED GFR (MDRD EQUATION) > 60; SODIUM 142 mMol/L (135-145)
[2016-06-09 05:04] LABS: HEMATOCRIT 27.4 % (37.0-53.0); HEMOGLOBIN 9.1 g/dL (11.0-16.0); MCH 29.4 pg (27.0-34.0); MCHC 33.2 gm/dL (32.0-36.5); MCV 88.4 fl (83.0-98.0); MPV 10.2 fl (9.4-12.4); PLATELET COUNT 222 K/uL (150-450); RDW-CV 13.8 % (11.9-14.6)
[2016-06-09 05:36] LABS: ABSOLUTE NEUTROPHIL CT (ANC) 15.7 K/uL (1.4-9.0); BANDED NEUTROPHIL # 1.9 K/uL (0.0-0.1); BANDED NEUTROPHILS % 12 %; LYMPHOCYTE # 0.2 K/uL (0.8-4.0); LYMPHOCYTE % 1 %; MONOCYTE # 0.2 K/uL (0.0-1.0); SEGMENTED NEUTROPHIL # 13.8 K/uL (1.4-9.0); SEGMENTED NEUTROPHIL % 86 %
--- NOTE | 2016-06-09 17:28 | NUR ---
Significant Event: Patient is alert and oriented x3. VSS on RA. C-diff sample needed. Up with 1A, walker, and gaitbelt. Daughter in law in room this am. Patient has been calm and cooperative throughout shift. Follow Up: Chest xray in am. Transfer to PCU when able.
--- NOTE | 2016-06-10 03:47 | NUR ---
SIGNIFICANT EVENT: PT DID NOT HAVE ANY SIGNIFICANT CHANGES THROUGHOUT SHIFT. REMAINS A/OX3, BP STABLE ON 2L NC WHILE SLEEPING. DENIES PAIN AND SHORTNESS OF BREATH. FOLLOW UP:
[2016-06-10 04:21] LABS: HEMOGLOBIN 9.3 g/dL (11.0-16.0); MCH 29.9 pg (27.0-34.0); MCHC 33.2 gm/dL (32.0-36.5); PLATELET COUNT 217 K/uL (150-450); RBC 3.11 M/uL (3.50-5.50); RDW-CV 13.9 % (11.9-14.6); WBC 8.6 K/uL (4.0-11.0)
[2016-06-10 04:25] LABS: BLOOD UREA NITROGEN 16 mg/dL (6-24); CHLORIDE 113 mMol/L (96-110); CO2 25 mMol/L (22-32); CREATININE 0.8 mg/dL (0.6-1.3); ESTIMATED GFR (MDRD EQUATION) > 60; SODIUM 144 mMol/L (135-145)
[2016-06-10 05:17] LABS: ABSOLUTE NEUTROPHIL CT (ANC) 7.8 K/uL (1.4-9.0); BANDED NEUTROPHIL # 0.3 K/uL (0.0-0.1); BANDED NEUTROPHILS % 3 %; LYMPHOCYTE # 0.7 K/uL (0.8-4.0); LYMPHOCYTE % 8 %; MONOCYTE # 0.1 K/uL (0.0-1.0); SEGMENTED NEUTROPHIL # 7.6 K/uL (1.4-9.0); SEGMENTED NEUTROPHIL % 88 %
--- NOTE | 2016-06-10 09:00 | NUR ---
A - PT SCREENED D/T LOS. APPETITE POOR AT TIMES. 1-2+ EDEMA. HT: 67" WT: 176# BMI: 26.2. LABS: ACCUCHECK WNL->200, GLU 201, ALB 2.1, CRP 21.9. MEDS: LACTINEX, DOXYCYCLINE, SSI, PROTONIX, PREDNISONE, FLORASTOR, LEVEMIR, INVANZ, NAUSEA. DIET: DIABETIC. INTAKE: SIPS-100% AVG ~50%. EST NEEDS: 7155-3328 KCAL (20-25 KCAL/KG), 80-96 G PRO (1-1.2 G/KG), 2400 ML FLUID (30 ML/KG) D - INADEQUATE NUTRIENT INTAKE AT TIMES R/T DECREASED APPETITE AEB INTAKE RECORD. I - GOAL FOR INTAKE 50-75% BY NEXT ASSESSMENT. WILL ADD GLUCERNA BID TO INC NUTRIENT INTAKE. M/E - WILL MONITOR INTAKE F/U IN 4-6 DAYS.
--- NOTE | 2016-06-10 15:51 | NUR ---
Social visit with pt today. I discussed dc plans and he is thinking he will be going home tomorrow. His son from [place] is coming to get him and then they will go to [place] to see his at [facility]. I discussed his safety at home and did mention skilled care and he states no he will be going home but is ok with [facility]. He states he has Garrison Maurice and Magaly Lambert lined up to be with him during the day and I stated I am also worried at [facility] and do not think he should be alone until he is stronger He did tell me his son Artur can stay with him as well if needed. I then asked about choices for [facility] and he called his son Artur. I then updated Artur on what I do and what I was concerned with. He states he has people lined up during the day and also for [facility] he said a couple meds names that can stay the next week with him at [facility]. Artur thinks [facility] would be a good idea and thru the hospital because they have had it before. Artur also plans on getting him a 4 wheeled walker for him at home and he already has a w/c, walker and ramp. I then called [facility] in and started a referral with them and they can see pt on Monday. I faxed referral and note on the chart for nurse to fax dc orders/meds and face to face on dc. Will continue to follow and assist as needed.
--- NOTE | 2016-06-10 17:56 | NUR ---
I HELPED PUT ON PATIENT'S PROSTHETIC LEG THIS MORNING AND GOT HIM UP TO THE BATHROOM. PATIENT WAS ON 2 LITERS O2 DURING THE NIGHT SO WE TOOK HIM OFF THIS MORNING AND HAD HIM ON ROOM AIR DURING THE DAY. PATIENT RECEIVED 6 UNITS OF INSULING AT LUNCH FOR A BLOOD SUGAR OF 272, HE IS ON THE MILD SLIDING SCALE. PATIENT HAD A VISITOR AROUND 1600 FOR ABOUT AN HOUR. PATIENT HAD TWO BM'S TODAY, I DID NOT WITNESS EITHER OF THEM. THERMOMETER IN ROOM WAS NOT WORKING ORALLY SO I DID AXILLARY THROUGHOUT THE DAY. PATIENT'S RIGHT ARM IS STILL SWOLLEN, HOWEVER HE STATES THE SWELLING HAS GONE DOWN. THE SWELLING IN HIS ARM HAS GONE DOWN A LITTLE DURING THE DAY. PATIENT HAD ICE ON HIS RIGHT ARM TODAY TO HELP WITH PAIN AND SWELLING. PATIENT ALSO HAS A COMPRESSION WRAP ON HIS ARM THAT WAS CHANGED BY THE PA THIS MORNING. THE IV IN PATIENT'S LEFT FOREARM WAS LEAKING SO I REMOVED IT AT APPROXIMATELY 1230, WE USED HIS RIGHT IJ FOR IV ACCESS DURING THE DAY. PATIENT HAS BEEN COUGHING UP SPUTUM THIS AFTERNOON, IT HAS BEEN SMALL AMOUNTS OF SPUTUM. PATIENT HAS BEEN UP TO CHAIR PERIODICALLY DURING THE DAY AND IS CURRENTLY RESTING IN BED. PATIENT'S SON PLANS TO COME SEE HIM TONIGHT.
[2016-06-11 04:30] LABS: BLOOD UREA NITROGEN 14 mg/dL (6-24); CALCIUM 7.4 mg/dL (8.5-10.5); CHLORIDE 114 mMol/L (96-110); CO2 25 mMol/L (22-32); CREATININE 0.8 mg/dL (0.6-1.3); ESTIMATED GFR (MDRD EQUATION) > 60; SODIUM 147 mMol/L (135-145)
[2016-06-11 04:32] LABS: BASOPHIL % 0.3 %; EOSINOPHIL # 0.1 K/uL (0.0-0.5); EOSINOPHIL % 1.6 %; HEMATOCRIT 27.8 % (37.0-53.0); HEMOGLOBIN 9.1 g/dL (11.0-16.0); IMMATURE GRANULOCYTE # 0.1 K/uL (0.0-0.3); IMMATURE GRANULOCYTE % 0.7 %; LYMPHOCYTE # 0.5 K/uL (0.8-4.0); LYMPHOCYTE % 7.1 %; MCH 29.9 pg (27.0-34.0); MCHC 32.7 gm/dL (32.0-36.5); MCV 91.4 fl (83.0-98.0); MONOCYTE # 0.3 K/uL (0.0-1.0); MONOCYTE % 3.5 %; MPV 10.1 fl (9.4-12.4); NEUTROPHIL # (ANC) 6.5 K/uL (1.4-9.0); NEUTROPHIL % 86.8 %; NRBC % 0 /100WBC (0-0.00); PLATELET COUNT 243 K/uL (150-450); RBC 3.04 M/uL (3.50-5.50); RDW-CV 14.1 % (11.9-14.6); WBC 7.5 K/uL (4.0-11.0)
--- NOTE | 2016-06-11 05:38 | NUR ---
Significant Event: Patient is alert/oriented x3. Vital signs are stable. On room air during the day and 2L O2 at night (does not normally wear at home). Denies any pain. Right arm is dressed, dressing C/D/I. Hand continues to be edematous, CSM is WNL. Follow up: Dismiss to home today?
[2016-06-11] MEDS ORDERED: DOXYCYCLINE100 MG PO (10:18)
[2016-06-11] MEDS ORDERED: SPIRIVA HANDIHA1 KIT INH (10:27)
[2016-06-11] MEDS ORDERED: TYLENOL EXTRA500 MG PO (10:28)
[2016-06-11] MEDS ORDERED: PROVENTIL OR V6.7 GM INH (10:33)
[2016-06-11] MEDS ORDERED: SYMBICORT 16010.2 GM INH (10:34)
--- NOTE | 2016-06-11 11:36 | NUR ---
Patient dismissed to home with home health at 1130 with sons. Patient and family deny question or concern of dismissal. Discussed f/u appointments. Home health orders face to face will be faxed. NO butts per protocol by James HUDSON.
== END 2016-06-11 11:30 | disposition home health service (06) | DRG 871 ==
LOC: GMED 09:39 → GPCU 12:53 → GICU 12:53 → GPCU 13:38 → GICU 14:13 → GPCU 06-10 05:35
PROVIDERS: Emergency Medicine; Internal Medicine; ADMIT Hospitalist
PROC: B246ZZZ Ultrasonography of Right and Left Heart (ICD-10-PCS; principal; 2016-06-07)
PROC: B543ZZA Ultrasonography of Right Jugular Veins, Guidance (ICD-10-PCS; principal; 2016-06-07)
PROC: 05HM33Z Insertion of Infusion Device into Right Internal Jugular Vein, Percutaneous Approach (ICD-10-PCS; principal; 2016-06-07)
PROC: B246ZZ4 Ultrasonography of Right and Left Heart, Transesophageal (ICD-10-PCS; 2016-06-08)
DX: A41.9 Sepsis, unspecified organism (principal); J18.9 Pneumonia, unspecified organism; J96.01 Acute respiratory failure with hypoxia; N17.9 Acute kidney failure, unspecified; E87.3 Alkalosis; E11.649 Type 2 diabetes mellitus with hypoglycemia without coma; J44.1 Chronic obstructive pulmonary disease with (acute) exacerbation; E87.1 Hypo-osmolality and hyponatremia; I48.0 Paroxysmal atrial fibrillation; J45.901 Unspecified asthma with (acute) exacerbation; L03.113 Cellulitis of right upper limb; R65.20 Severe sepsis without septic shock; I25.10 Atherosclerotic heart disease of native coronary artery without angina pectoris; I10 Essential (primary) hypertension; I73.9 Peripheral vascular disease, unspecified; N30.90 Cystitis, unspecified without hematuria; Z89.521 Acquired absence of right knee; Z95.1 Presence of aortocoronary bypass graft
CPT/HCPCS: J0696; J1335; J1644; J1650; J2020; J2405; J3370; J7030; J7040; J7050; J7120; J7512

== ENCOUNTER 2016-06-16 13:24 | Inpatient (IN) | payer MEDICARE, OTHER ==
[~2016-06-16] VITALS: Ht 170.2 cm; Wt 76.8 kg
--- NOTE | ~2016-06-16 | DS ---
PATIENT'S NAME: ELIZABETH LOMELI [facility] AGE: 76 Y [address] ROOM: [address] [place], [place] [address] [place] [facility] [place] DATE: 06/17/2016 Discharge Summary DISCHARGE DATE: 06/21/2016 FAMILY PHYSICIAN: Trae Talbert MD ATTENDING PHYSICIAN: Evelyne Chase ADMITTING DIAGNOSES: 1. Sepsis with etiology uncertain. 2. Toxic encephalopathy, resolved. 3. Acute hypoxic respiratory failure with chronic underlying chronic obstructive pulmonary disease. 4. Questionable concern for adrenal insufficiency. 5. Chronic lower back pain. 6. History of coronary artery disease, status post CABG. 7. History of peripheral vascular disease, status post right BKA. 8. Diabetes mellitus type 2 with hypoglycemia. 9. Constipation. HOSPITAL COURSE: Please reference any admitting data to the history and physical as dictated by Dr. Evelyne Chase. This is a 76-year-old male, who presented to the emergency room after recent hospitalization for sepsis, came back with nausea, vomiting, and a fever, and borderline hypotension. He was given IV fluids and started on vancomycin and meropenem and admitted into the hospital for further evaluation. A right upper quadrant ultrasound ruled out cholecystitis. A CT of the head ruled out any acute intracranial abnormalities. Initial white blood cell count was normal. Cultures were obtained. Vital signs were monitored. He did spike a fever of 101.7 overnight. Blood pressure normalized with IV fluids. He still required oxygen. By the next morning, he became encephalopathic. CT of head was negative for acute intracranial abnormalities. He was given reversal Narcan x2 doses, and his fentanyl patch was discontinued and started on IV Decadron for concerns of adrenal insufficiency. He aroused without complication and was somewhat clear than previous. He continued to make good progress, although still had some nausea and vomiting, which was very mild. A gastric emptying study was obtained and was negative. We weaned his Decadron to taper from IV to oral. He tolerated this well. We had titrated his anti- glycemic regimen with Levemir and oral metformin accordingly. On the last day, his blood sugars did drop to 73 and 60 respectively with a venous draw of 53. This was corrected. His Levemir dose was decreased, and his metformin was stopped on discharge. Restorative cares were added for strengthening during his time here. DVT prophylaxis was maintained with pneumatic compression devices and often mobilization. PATIENT'S NAME: ELIZABETH LOMELI [facility] AGE: 76 Y [address] ROOM: [address] [place], [place] [address] [place] [facility] [place] DATE: 06/17/2016 Discharge Summary DISCHARGE DATE: 06/21/2016 FAMILY PHYSICIAN: Trae Talbert MD ATTENDING PHYSICIAN: Evelyne Chase Addendum to above culture data remained negative. His counts were monitored. He had a mild shift in his bands, however, did not have any further fevers, and after 3 days, antibiotics were discontinued. He continued to remain afebrile during his stay. Laboratory findings were unremarkable. The patient was discharged without antibiotics. LABORATORY FINDINGS: Pertinent positive data: Lactate initially was 0.90. Procalcitonin level was 0.10 and 0.26 respectively. CRP level was 7.0. Amylase, lipase, liver functions were normal. A.m. cortisol level on day after admission was 2.1. TSH was normal. Urinalysis was unremarkable. Blood cultures and urine cultures were negative. CBC showed normal white blood cell count on 06/17/2016, and there was a shift in his bands with 18%, number declining next day to 6%; hemoglobin 9.3 to 10.9; platelets normal. Chemistry panel most recently, glucose of 53; BUN of 23; creatinine of 1.0, normal during his stay; sodium 142; potassium 3.5; chloride of 108; CO2 of 23. Calcium 8.6. Magnesium 2.4. Phosphorus 0.8. GFR greater than 60 through the entire stay. RADIOLOGIC IMAGING: Gastric emptying study was normal. Right upper quadrant ultrasound, no acute findings. Gallbladder and biliary tree within normal limits. MRI of the right upper extremity showed generalized nonspecific soft tissue edema in the right hand and wrist. No definable abscess. There is no evidence of osteomyelitis. Imaging had improved since previous MRI of the right upper extremity on 06/06/2016. CT of the head, stable, negative. CT of the thorax showed dependent atelectasis, trace effusions, slight interstitial prominence, possible early edema. No evidence of pneumonia. Chest x-ray showed cardiomegaly with small bilateral effusions. No evidence of failure or pneumonia. DISCHARGE MEDICATIONS: 1. Allopurinol 300 mg p.o. every day. 2. Betamethasone 1 application topically twice daily to the penis. 3. Clopidogrel 75 mg p.o. every day. 4. Prednisone 5 mg p.o. twice daily, dose reduced. 5. Colace 100 mg p.o. twice daily. 6. Fentanyl 25 mcg every 72 hours transdermal, prescription written. 7. Lantus 20 units subcutaneous every day. 8. NovoLog as per moderate scale subcutaneous before meals and at bedtime PATIENT'S NAME: ELIZABETH LOMELI [facility] AGE: 76 Y [address] ROOM: [place] [address] [place]: [facility] [place] DATE: 06/17/2016 Discharge Summary DISCHARGE DATE: 06/21/2016 FAMILY PHYSICIAN: Trae Talbert MD ATTENDING PHYSICIAN: Evelyne Chase with associated blood sugar checks before each meal and at bedtime. 9. Isosorbide mononitrate 30 mg p.o. every day. 10. Stop metformin. 11. Singulair 10 mg p.o. every night at bedtime. 12. Terazosin 10 mg p.o. every night at bedtime. 13. Theophylline 300 mg p.o. every other day. 14. Spiriva 2 puffs inhalation every day. 15. Tylenol 1000 mg p.o. every 8 hours as needed for mild pain rated 1 to 3. 16. Gackle 10/325 mg 1 tablet p.o. every 6 hours as needed for moderate pain to 4 to 6. 17. Dulcolax 10 mg per rectum every day as needed. 18. Glucagon 1 mg subcutaneous for hypoglycemia as per protocol. 19. Glucose 16 g p.o. for hypoglycemia as per protocol. 20. Milk of magnesia 30 mL p.o. every day as needed for constipation. 21. Zofran 8 mg p.o. every 8 hours as needed for nausea. 22. MiraLAX 17 g p.o. every day as needed. 23. Albuterol HFA inhaler one puff inhalation every 4 hours as needed for shortness of breath. 24. Spironolactone 25 mg p.o. every day. 25. Clindamycin 600 mg p.o. one time prior to dental work. 26. Artificial tears 1 to 2 drops to each eye as needed for dry eyes. 27. Symbicort 160/4.5 mcg 2 puffs inhalation twice daily. DISCHARGE INSTRUCTIONS: The patient will be discharged to [facility] He will undergo long-term care along with associated therapies of occupational and physical therapy to continue to evaluate and treat the patient as indicated. His weightbearing status is as tolerated. His prosthesis for his right [id number] amputation should be applied and on at all times with activity with significant fall precautions. The patient should follow up with his primary care provider, Dr. Trae Talbert, in 2 weeks. I did speak with Dr. Talbert on the phone and updated him about the patient's stay during his hospitalization. We do ask that they continue to monitor his blood sugars before meals and at bedtime and as needed and to call Dr. Talbert if his blood glucose falls below 60 or greater than 300. His rehab potential is fair. His discharge potential is fair. The patient and the family are well aware of the condition and prognosis. The above line of management was discussed with the family, and they stated complete understanding. All questions were answered with satisfaction. Total discharge timing was greater than 30 minutes. PATIENT'S NAME: ELIZABETH LOMELI [facility] AGE: 76 Y [address] ROOM: [place] [address] [place] [facility] [place] DATE: 06/17/2016 Discharge Summary DISCHARGE DATE: 06/21/2016 FAMILY PHYSICIAN: Trae Talbert MD ATTENDING PHYSICIAN: Evelyne Chase AMADOR RAE APRN, APRN FOR MD MAYITO BARLOW/josef /[id number] CC: Trae Talbert MD d: t: 06/22/16 0957, DISCHARGE SUMMARY
--- NOTE | ~2016-06-16 | ER ---
PATIENT'S NAME: ELIZABETH LOMELI [facility] AGE: 76 Y [address] ROOM: [address] [place], [place] [address] [place] [facility] [place]: 06/16/2016 ER/Outpatient Report DISCHARGE DATE: FAMILY PHYSICIAN: EMA BUCK MD ATTENDING PHYSICIAN: Salvatore STUBBS Admission date and time documented in the medical record. I saw the patient at 1340 hours. CHIEF COMPLAINT: Increasing weakness over the past 4 days, fever of 102 today, fall out of bed, failure to thrive, will not eat, hypotensive with a blood pressure 95/55. HISTORY OF PRESENT ILLNESS: This patient is a 76-year-old male, who during the period of June 06 to June 11 was in the hospital with pneumonia and sepsis. He was discharged from the hospital on . He has had a downhill course since that time at home. He has had increased weakness over the past 4 days since he has been discharged from the hospital. He has no appetite. He refuses to eat. He has been drinking some fluids. He was noted to have a temperature of 102 at home today. He was given Tylenol on arrival to the emergency room by a private vehicle. His temperature was 98. He has had some chills, but no rigors. He denies chest pain, shortness of breath, abdominal pain, nausea, vomiting, or diarrhea. He has had no urinary symptomatology. He was hypotensive with a blood pressure 95/55 on arrival to the emergency department. IV fluids were started. The patient was given a bolus of 500 mL of normal saline, then started 150 mL an hour, and his blood pressure came up above 100 to 114 range systolic. His pulse has ranged around mid 70s to mid 80s. He is awake and responsive. Follows commands. He is a little bit somnolent at times. He will awake to voice and his name and again follows commands. Denies any head pain, neck pain, spine pain. No eyes, ears, nose, throat pain. He fell out of bed but really did not have any syncope. He is little lightheaded and dizzy, but again no syncope. No other trauma other than the fall out of bed. He is not getting around very well at home because of the weakness. He has also had a past history of above-knee amputation of the right leg. He lives alone. At this point, he is unable to take care of himself. He does have a history of insulin-dependent diabetes mellitus type 2. He has had no history of TIA, CVA, or seizure disorder. No psych history or issues. HOME MEDICATIONS: See attached medication list. ALLERGIES: ASPIRIN, PENICILLIN, CECLOR, LEVAQUIN. PATIENT'S NAME: ELIZABETH LOMELI [facility] AGE: 76 Y [address] ROOM: [address] [place], [place] [address] [place] [facility] [place]: 06/16/2016 ER/Outpatient Report DISCHARGE DATE: FAMILY PHYSICIAN: EMA BUCK MD ATTENDING PHYSICIAN: Salvatore STUBBS SOCIAL HISTORY: Nonsmoker, nondrinker. SIGNIFICANT PAST MEDICAL HISTORY: Atherosclerotic ischemic heart disease with coronary artery disease; insulin- dependent diabetes mellitus type 2; peripheral vascular disease; sepsis; pneumonia; hypertension; lumbosacral stenosis; dyslipidemia; COPD, asthmatic type; gout; peripheral neuropathy; osteomyelitis; degenerative osteoarthritis; benign prostatic hypertrophy. OPERATIONS: Cataract extraction, left knee surgery, sinus surgery, central line placement, right above-knee amputation, three-vessel coronary bypass graft, cardiac catheterization with PTCA and stenting, right hand surgery. REVIEW OF SYSTEMS: All systems reviewed by me are negative with the exception of those discussed in the history of present illness. PHYSICAL EXAMINATION: VITAL SIGNS: Temperature 98 tympanic, pulse 82 and regular, respirations 16, blood pressure 95/55, O2 saturation on 4 L of oxygen per nasal cannula is 91%. HEAD: Normocephalic. No abrasion, contusion, laceration, swelling of the scalp or face. EYES: Extraocular muscles intact. PERRL. Sclerae and conjunctivae clear, nonicteric. EARS: Clear TMs bilaterally. NOSE: Clear. THROAT: Clear. He has vomitus on his chin and on his shirt. NECK: No nuchal rigidity. No thyromegaly or cervical adenopathy. No tenderness. SPINE: Negative. LUNGS: Clear breath sounds. No rales, rhonchi, or wheezes. Breath sounds are a little distant. HEART: Regular. Pulses are palpable. The patient is not tachycardic or tachypneic. ABDOMEN: Soft, nondistended, nontender. Good bowel tones. No organomegaly or abnormal mass palpable. EXTREMITIES: The patient has a right above-knee amputation. No peripheral cyanosis. Does have some edema. No other deformities. Moves all extremities. NEURO: The patient is awake, alert, cooperative. No lateralizing signs. VASCULAR: Intact. SKIN: Clear. No skin eruptions or rash. PATIENT'S NAME: ELIZABETH LOMELI [facility] AGE: 76 Y [address] ROOM: [address] [address] [place] [facility] [place]: 06/16/2016 ER/Outpatient Report DISCHARGE DATE: FAMILY PHYSICIAN: EMA BUCK MD ATTENDING PHYSICIAN: Salvatore STUBBS LABORATORY DATA AND X-RAYS: White count was 8200, 64 segs, 20 lymphs, 11 monos, 2 eos, 1 baso, hemoglobin was 10.4, with hematocrit 32.1 platelet count was 290,000. PTT was 25, pro- time was 12.6, INR 1.2. CMS was normal except for a low CO2 content of 21, elevated glucose 122, low calcium of 7.7, low total protein, albumin, and A/G ratio. Amylase and lipase were normal. CPK was elevated 694, most likely from the fall out of bed; CK-MB was normal at 2.7; troponin was 0.052. CRP was elevated 7. proBNP was 1623. Urine was clear other than 15 ketones. Venous pH was 7.36. Serum ammonia level was normal at 17. Serum acetone was positive 1:8. Procalcitonin was 0.26. Lactate was 0.9. Chest x-ray showed cardiomegaly, no congestive failure, no pneumonia, had some scarring. Chest x-ray was read by Radiology. CT scan of the chest without contrast is being performed and results are pending. EMERGENCY DEPARTMENT COURSE: We did give the patient 500 bolus of normal saline. Put him at 150 mL an hour. His pressure did improve from a systolic of 95 to a systolic of 114. His pulse rate remained stable. IMPRESSION: 1. Failure to thrive. The patient will not eat as no appetite. He has ketones in his urine and ketones in his blood at a ratio 1:8. 2. Generalized weakness. Fell out of bed today. He has some accompanying nausea with vomiting and a reported fever of 102 at home. The patient lives alone, not able to care for himself, was recently in the hospital with sepsis and pneumonia, and it appears like he is having a poor recovery from that serious illness. 3. Reported temperature elevation of 102. He is afebrile here in the emergency department. He has a normal CBC, normal lactate, and slightly elevated procalcitonin of 0.26. His urine is clear, and his chest x-ray showed no pneumonia. 4. Insulin-dependent diabetes mellitus type 2. The patient has normal pH of 7.36. His initial blood glucose on arrival by Accu-Chek was 60. He was given one amp of D50, it brought his blood sugar up to 127 level. Unsure whether he has taken any insulin at home since he has not been eating. 5. Atherosclerotic ischemic heart disease with coronary artery disease. He is status post three-vessel coronary bypass graft and has had previous coronary stents. 6. Peripheral vascular disease with a history of a right above-knee amputation. 7. History of hypertension. 8. History of chronic obstructive pulmonary disease, asthmatic type with low oximetry 91% on 4 L of oxygen per nasal cannula. PATIENT'S NAME: ELIZABETH LOMELI [facility] AGE: 76 Y [address] ROOM: [address] [address] [place] [facility] [place]: 06/16/2016 ER/Outpatient Report DISCHARGE DATE: FAMILY PHYSICIAN: EMA BUCK MD ATTENDING PHYSICIAN: Salvatore STUBBS PLAN: I did discuss this patient with Dr. Stubbs, hospitalist. The patient will be admitted to the hospital. The patient will be admitted to [facility] for further evaluation and treatment. The patient will most likely need placement because he is unable to take care of himself. I believe the family understands and in agreement to talk with Care Management and arrange placement. MD CHRISTIANE CARTWRIGHT/mahnazl /[id number] d: 06/16/[id number] t: 06/20/16606, OUTPATIENT REPORT
--- NOTE | ~2016-06-16 | HP ---
PATIENT'S NAME: ELIZABETH LOMELI [facility] AGE: 76 Y [address] ROOM: [address] [place], [place] [id number] LOCATION: [facility] [place] ADMIT DATE: 06/16/2016 History & Physical DISCHARGE DATE: FAMILY PHYSICIAN: EMA BUCK MD ATTENDING PHYSICIAN: Salvatore CHILDS DATE OF SERVICE: CHIEF COMPLAINT: Nausea, vomiting, and fever. HISTORY OF PRESENT ILLNESS: The patient is a 76-year-old gentleman with past medical history of peripheral vascular disease, complicated with osteomyelitis, status post left below-knee amputation; diabetes mellitus; coronary artery disease, status post CABG; asthma, on chronic prednisone, who presents here with nausea, vomiting, and fever. The patient was recently admitted to our hospital for sepsis of unknown origin. He was admitted on and discharged on June 11. During his stay, he was treated with broad-spectrum antibiotic, has had a CT abdomen and chest that was unrevealing, and had an MRI of his right hand without contrast, that was unrevealing. The patient was discharged home in stable condition. However, at home, the patient started to have some nausea, vomiting, and intermittent fever and chills. T-max of 100.2 today at home. The patient is currently staying by himself, and he is not able to take care himself and reports of one episode of fall out of his bed. Daughter is at bedside and voiced that she is worried about her father as he is not able to take care of himself; he is not able to take his medication appropriately, feed himself, and take care of his daily activities of life. The patient reports that he gets multiple episodes of nausea and vomiting, and stated that he has not been taking most of his medications for close to a week now. He reports intermittent fever and chills and generalized weakness and nonbloody nausea and vomiting. He denies any chest pain, worsening shortness of breath, diarrhea, hematemesis, tarry stool, seizure-like activity, and change in vision. MEDICAL HISTORY: Peripheral vascular disease; diabetes mellitus type 2; coronary artery disease; asthma/COPD, on chronic steroids. SURGICAL HISTORY: CABG and right below-knee amputation. FAMILY HISTORY: Noncontributory. PATIENT'S NAME: ELIZABETH LOMELI [facility] AGE: 76 Y [address] ROOM: [address] [place], [place] [address] LOCATION: [facility] [place] ADMIT DATE: 06/16/2016 History & Physical DISCHARGE DATE: FAMILY PHYSICIAN: EMA BUCK MD ATTENDING PHYSICIAN: Salvatore CHILDS SOCIAL HISTORY: He lives by himself currently. His is currently in a long term facility after Whipple procedure. Denies smoking and drinking. MEDICATIONS: Please see MAR. REVIEW OF SYSTEMS: All systems have been reviewed and are negative except for what is mentioned in the HPI. PHYSICAL EXAMINATION: VITAL SIGNS: Temperature 101.7, blood pressure 127/56, pulse of 80, respiratory rate of 16, saturating 95 on 3 L. HEAD: Mild bruising over his forehead. Normocephalic. EYES: Extraocular muscle intact. SKIN: Warm to touch. NOSE: No nasal discharge. EAR: Hearing aid present. NECK: No JVD. HEART: A grade 2 systolic murmur heard. Regular rate and rhythm. LUNGS: Clear to auscultation bilaterally. ABDOMEN: Mild right upper quadrant tenderness. Bowel sounds present. EXTREMITIES: Right below-knee amputation. MUSCULOSKELETAL: Right hand erythema and swollen, warm to touch, mild tenderness on flexion of his fingers. CHECK VIEWER: Alert and oriented x3. Motor and sensory grossly intact. LABORATORY DATA: Initial blood glucose level 60, currently 153. Troponin of 0.052, hemoglobin of 10.4, hematocrit of 32.1, white blood cell count of 8.2. BUN of 9, creatinine of 1.1, potassium of 3.7, CO2 of 21. AST, ALT, alkaline phosphatase, total bilirubin within normal limits. INR of 1.2. UA shows ketones of 15. CRP of 7 and prolactin level of 0.26. IMAGING DATA: CT chest shows no signs of infiltrates suggesting pneumonia. ASSESSMENT AND PLAN: The patient is a 76-year-old gentleman with past medical history of coronary artery disease, diabetes mellitus, peripheral vascular disease, asthma, on chronic steroids, who presents here with a few days' history of intermittent fever, chills, nausea, and vomiting. On initial evaluation, blood glucose of 60, CRP of 7, and temperature of 101.7. The patient has mild right upper quadrant pain. The patient also exhibits right hand erythema, warmth, and PATIENT'S NAME: ELIZABETH LOMELI [facility] AGE: 76 Y [address] ROOM: [address] [place], [place] [address] LOCATION: [facility] [place] ADMIT DATE: 06/16/2016 History & Physical DISCHARGE DATE: FAMILY PHYSICIAN: EMA UBCK MD ATTENDING PHYSICIAN: Salvatore CHILDS swollen with mild pain on flexion of fingers. Etiology in this case is unknown yet. On last admission, the patient had an extensive workup including SCOTTIE, CT chest, abdomen, and MRI without contrast of hand, which showed no signs of infection. The patient was also seen by ID during stay. However, I suspect the patient has hiding some occult infection. I suspect infection is coming from his hand. The patient has a history of right hand accident, however, now his hand is erythematous, warmth to touch, and I suspect he might have some underlying osteomyelitis underneath. His last investigation was with MRI without contrast on June 06. However, we will acquire MRI of hand with and without contrast to better evaluate for osteomyelitis. Also, we will acquire right upper quadrant ultrasound to rule out cholecystitis, especially with a history of nausea and vomiting. Also, the patient has prednisone 10 mg b.i.d., that he supposed to take, however, has not been taking this medication for a while due to his decreased activity of daily life, that is affected by he is living by himself and not able to taking care of himself and also his current nausea and vomiting. I suspect the patient might have underlying adrenal insufficiency with current not using his prednisone. We will start dexamethasone 4 mg IV t.i.d. 1. Sepsis. Etiology cholecystitis versus right hand osteomyelitis. Right upper quadrant ultrasound and right hand MRI with and without contrast are pending. Blood culture is pending. We will start the patient on vancomycin and meropenem. We will follow the patient clinically. 2. Intractable nausea, vomiting, etiology most likely secondary to cholecystitis or adrenal insufficiency. We will acquire imaging of right upper quadrant. We will also start the patient on dexamethasone 4 mg IV t.i.d. We will check cortisol level in a.m. We will hold the patient's chronic prednisone 10 mg b.i.d. 3. Dehydration. We will continue IV fluid. 4. Hypoglycemia, etiology most likely secondary to adrenal insufficiency and poor oral intake. We will hold his diabetic medication. Currently on D5 half-normal saline. Accu-Chek serially. 5. Coronary artery disease, status post CABG. Continue aspirin and statin. The patient denies any chest pain. Troponin of intermediate level initially. Etiology most likely secondary to demand. We will repeat troponin in the morning. 6. Peripheral vascular disease. Continue Plavix and statin. 7. Protein-calorie malnutrition. Dietitian will see him in the morning. We will treat underlying etiology. 8. Deconditioning. PT and OT. 9. Failure to thrive. We will try to fix the underlying etiology, and I hope and believe that if the source of infection is controlled, the patient might improve. 10. Asthma. Albuterol as needed. Continue theophylline and currently on dexamethasone. I have personally reviewed the patient's medical record including but not PATIENT'S NAME: ELIZABETH LOMELI [facility] AGE: 76 Y [address] ROOM: [place] [address] LOCATION: [facility] [place] ADMIT DATE: 06/16/2016 History & Physical DISCHARGE DATE: FAMILY PHYSICIAN: EMA BUCK MD ATTENDING PHYSICIAN: Salvatore CHILDS limited to blood work and radiology report. Total time spent with patient is greater than 70 minutes, more than 50% of the time is spent in direct patient's care and patient's consultation. Case reviewed with the patient, nursing staff. All questions were answered to the patient and daughter's satisfaction. NAZ SILVESTRE MD AD/modl /[id number] D: [id number] T: 600 HISTORY & PHYSICAL
[~2016-06-16 13:24] MED LIST changes: +ARTIFICIAL TEAR15 ML OPHTH; +BETAMETHASONE V60 ML TOP; +DOXYCYCLINE100 MG PO; +MACROBID100 MG PO; +PROVENTIL OR V6.7 GM INH; +SPIRIVA HANDIHA1 KIT INH; +SYMBICORT 16010.2 GM INH; +TYLENOL EXTRA500 MG PO; +ZOFRAN8 MG PO
[2016-06-16 15:17] LABS: ALBUMIN 2.2 gm/dL (3.5-5.0); ALK PHOS 47 IU/L (33-138); ALT 12 IU/L (12-78); ANION GAP 13.7 (10.0-19.0); AST 27 IU/L (10-40); BLOOD UREA NITROGEN 9 mg/dL (6-24); CALCIUM 7.7 mg/dL (8.5-10.5); CHLORIDE 108 mMol/L (96-110); CO2 21 mMol/L (22-32); CPK 694 IU/L (35-332); CREATININE 1.1 mg/dL (0.6-1.3); ESTIMATED GFR (MDRD EQUATION) > 60; POTASSIUM 3.7 mMol/L (3.7-5.1); SODIUM 139 mMol/L (135-145); TOTAL BILIRUBIN 0.4 mg/dL (0.0-1.5)
[2016-06-16 15:23] LABS: TOTAL PROTEIN 4.9 g/dL (6.0-8.4)
[2016-06-16 15:35] LABS: BASOPHIL % 0.5 %; EOSINOPHIL # 0.2 K/uL (0.0-0.5); EOSINOPHIL % 1.9 %; HEMATOCRIT 32.1 % (37.0-53.0); HEMOGLOBIN 10.4 g/dL (11.0-16.0); IMMATURE GRANULOCYTE # 0.2 K/uL (0.0-0.3); IMMATURE GRANULOCYTE % 2.7 %; LYMPHOCYTE # 1.7 K/uL (0.8-4.0); LYMPHOCYTE % 20.4 %; MCH 29.9 pg (27.0-34.0); MCHC 32.4 gm/dL (32.0-36.5); MCV 92.2 fl (83.0-98.0); MONOCYTE # 0.9 K/uL (0.0-1.0); MONOCYTE % 10.8 %; MPV 9.6 fl (9.4-12.4); NEUTROPHIL # (ANC) 5.2 K/uL (1.4-9.0); NEUTROPHIL % 63.7 %; NRBC % 0 /100WBC (0-0.00); PLATELET COUNT 290 K/uL (150-450); RBC 3.48 M/uL (3.50-5.50); RDW-CV 14.9 % (11.9-14.6); WBC 8.2 K/uL (4.0-11.0)
[2016-06-16 15:56] LABS: PROTIME 12.6 SECONDS (9.8-11.4); PTT 25 SECONDS (25-32)
[2016-06-16 15:59] LABS: BILIRUBIN URINE NEGATIVE (NEGATIVE); BLOOD URINE NEGATIVE /UL (NEGATIVE); COLOR URINE YELLOW (YELLOW); GLUCOSE URINE NEGATIVE (NEGATIVE); KETONE URINE 15 mg/dL (NEGATIVE); LEUKOCYTES URINE NEGATIVE /UL (NEGATIVE); NITRITE URINE NEGATIVE (NEGATIVE); PROTEIN URINE NEGATIVE (NEGATIVE); TURBIDITY URINE CLEAR (CLEAR); UROBILINOGEN URINE NORMAL (NORMAL)
--- NOTE | 2016-06-16 18:24 | NUR ---
Pt is 76 y/o male admit for failure to thrive for hospitalist. Pt alert and oriented x3. Has many allergies-see chart. Red and yellow bracelets on. Red sock on left foot. 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 Has prosthesis in room. Son at bedside and has been helping take care of pt. Pt wears bilat hearing aids and glasses. Pt's is currently at [facility] for rehab but normally they live together at home. Has hx CABG,htn,hypercholest,stents,edema Left leg,gout, DM,COPD,SOB w activity,asthma,chronic back pain,generalized weakness. Pt has poor appetite and states he feels a little depressed his is so far away at this time.
--- NOTE | 2016-06-17 05:25 | NUR ---
Pt arrived on floor at 1730 for Failure to thrive. Very weak. In and out of hospitals. 2100 pt was tremoring and had BS of 73. D50 given amp. x1. Returned to noraml parameters. Has no appetite to eat or drink. Diabetes. R) BTK amputation - stump intact. Prosthetic in room. 2nd toe of left foot missing. 3L of O2. Nausea with multiple episodes of emesis. Zofran given with no emesis following. IVF at 75ml/hr. IV to L) wrist - good BR. Temp on assess. 101.7. MD notified. Tylenol given. Temp returned to normal. Started on merepenam and vanco. TELE with no calls. IV protonix. ACCU q 4hours. CT negative. Will have MRI this AM with and without contrast to qureshi hand/wrist. PT/OT. Will also have a RUQ u/s this AM. Skin very fragile with right hand very swollen and red. Pt. appears to be in good spirits despite condition.
[2016-06-17 05:34] LABS: HEMOGLOBIN 10.5 g/dL (11.0-16.0); MCH 29.8 pg (27.0-34.0); MCHC 32.8 gm/dL (32.0-36.5); MCV 90.9 fl (83.0-98.0); MPV 9.5 fl (9.4-12.4); PLATELET COUNT 264 K/uL (150-450); RBC 3.52 M/uL (3.50-5.50); RDW-CV 14.6 % (11.9-14.6)
[2016-06-17 05:57] LABS: ALBUMIN 2.2 gm/dL (3.5-5.0); ANION GAP 14.4 (10.0-19.0); BLOOD UREA NITROGEN 10 mg/dL (6-24); CALCIUM 7.8 mg/dL (8.5-10.5); CHLORIDE 109 mMol/L (96-110); CO2 22 mMol/L (22-32); CREATININE 0.9 mg/dL (0.6-1.3); ESTIMATED GFR (MDRD EQUATION) > 60; PHOSPHORUS 3.3 mg/dL (2.5-4.9); POTASSIUM 4.4 mMol/L (3.7-5.1); SODIUM 141 mMol/L (135-145)
[2016-06-17 06:15] LABS: ABSOLUTE NEUTROPHIL CT (ANC) 6.8 K/uL (1.4-9.0); BANDED NEUTROPHIL # 1.4 K/uL (0.0-0.1); BANDED NEUTROPHILS % 18 %; LYMPHOCYTE # 1.1 K/uL (0.8-4.0); LYMPHOCYTE % 14 %; SEGMENTED NEUTROPHIL # 5.4 K/uL (1.4-9.0); SEGMENTED NEUTROPHIL % 67 %
--- NOTE | 2016-06-17 14:03 | NUR ---
Met patient and daughter Shayna this morning. I introduced myself and explained my role with the CM department. Patient was being taken down for an MRI so I only spoke to him for a brief moment. I spent about 30 mins talking with Shayna and getting a history of patient's recent hospitalizations. Per Shayna patient's has been at [facility] for the past 2 months. Patient stayed in an apartment there for the first 5 weeks, then he became ill, so family brought him back to [place]. Since then he has been in and out of the hospital with nausea and vomiting as his main complaints. He has been at [facility] and [facility]. The family, including patients at [facility], think it would be best for patient to go to a residential facility for a few weeks to get stronger before returning home. They state he did have home health care after his last hospitalization, but was only seen approximately 2 times because he was always feeling to sick to have therapy. The family states patient is not in agreement with going to a residential facility and he gets very angry whenever it is mentioned. Patient's is tentatively scheduled for discharge from [facility] on June 29 and she is planning on staying at a residential facility in [place] before transitioning to home. The family states she wants to stay at [facility], but they do not know if [facility] has made a referral for her there. They would like to see if they could get Mike there too. I will contact [facility] to see if they have any rooms available. I explained to Shayna that this stay is an observation stay so I will need to look at his past hospitalizations to see if he has the 3 overnight qualifying stay in the past 30 days for Medicare to help cover the first 20 days of skilled. Family is aware of this criteria and they do think he has had his qualifying stay. I will try to confirm this by looking at his record here at [facility]. I did call [facility] and they do not think [facility] has contacted them in regards to patient's . It sounds like they do not have a female bed available at this time, but they will have a male bed early next week. I will fax Nedra the patient's demographic patient so she has a name and then I will follow up on Monday.
--- NOTE | 2016-06-17 15:35 | NUR ---
D: PATIENT VITAL SIGNS STABLE PATIENT AFEBRILE. Patient was confused and difficult to arouse this am. Fentanyl patch removed and narcan given x 2 IV with excellent results. Patient has been much more alert since narcan, up with therapy tolerating excellent. Patient IV continues to infuse without difficulty. [place] given x1 with relief. Patient intake and output adequate and patient had a bm today.
--- NOTE | 2016-06-17 15:39 | NUR ---
Pierson given at 0804.
--- NOTE | 2016-06-18 04:18 | NUR ---
Pt. AA&OX3. 2 assist. Very pleasant and cooperative. Vital signs stable. IV L) wrist/thumb with IVF at 75ml/hour. IV antibx. Last tylenol given early AM. Much more alert today than yesterday. Did not sleep well through the night - a lot of tossing and turning. ACCU checks [id number]. Insulin given every ACCU check. R) BTK amputation. Wears prothesis and uses walker. Walks to the BR and would rather not use bedpan. Right hand looks better with much less reddness and swollen. Respositioned often.
[2016-06-18 06:02] LABS: HEMATOCRIT 27.2 % (37.0-53.0); HEMOGLOBIN 9.3 g/dL (11.0-16.0); MCH 29.8 pg (27.0-34.0); MCHC 34.2 gm/dL (32.0-36.5); MCV 87.2 fl (83.0-98.0); MPV 10.1 fl (9.4-12.4); PLATELET COUNT 302 K/uL (150-450); RBC 3.12 M/uL (3.50-5.50); RDW-CV 14.3 % (11.9-14.6)
[2016-06-18 06:25] LABS: ANION GAP 12.9 (10.0-19.0); CALCIUM 7.8 mg/dL (8.5-10.5); CHLORIDE 109 mMol/L (96-110); CO2 22 mMol/L (22-32); ESTIMATED GFR (MDRD EQUATION) > 60; POTASSIUM 3.9 mMol/L (3.7-5.1); SODIUM 140 mMol/L (135-145)
[2016-06-18 06:27] LABS: BLOOD UREA NITROGEN 16 mg/dL (6-24)
[2016-06-18 06:49] LABS: BANDED NEUTROPHIL # 0.5 K/uL (0.0-0.1); BANDED NEUTROPHILS % 6 %; LYMPHOCYTE # 0.5 K/uL (0.8-4.0); LYMPHOCYTE % 6 %; MONOCYTE # 0.5 K/uL (0.0-1.0); SEGMENTED NEUTROPHIL # 7.5 K/uL (1.4-9.0); SEGMENTED NEUTROPHIL % 83 %
--- NOTE | 2016-06-18 14:49 | NUR ---
Significant Event:up to bathroom x1, using urinal a couple times, BS 250-07, 358-11, increased levemir and Glucophage to start tonight with supper, IV saline locked-encouraged patient to drink more fluids, Restarted IV in right FA, VSS, a bit unsteady once when up, 477 in IVF before d/c, Nancy at 1350 for low back pain, polite and cooperative with cares Follow up:
--- NOTE | 2016-06-19 03:44 | NUR ---
Significant Event: Patient alert and oriented X4. Forgetful at times. Son at bedside for the evening because of weather. Up with 1-2 person assist walker and gait belt. R) BKA and L) 2nd toe amputation. Uses prosthesis when up. 1 NOrco given at bedtime for pain and has denied need for pain meds since. Slept very well this shift. States he was exhausted. IV to R) forearm infusion NICCI and fluids at 50ml. Q4H accuchecks, 298-6 units, 252- 6 units, 160-2 units. REcieved vanco. IV has great blood return. Vitals stable and on room air. R) hand still swollen but better. Numbness and tingling to bilateral hands yet. Telemetry on no calls. Follow up: Monitor pain
[2016-06-19 06:23] LABS: HEMATOCRIT 27.8 % (37.0-53.0); HEMOGLOBIN 9.3 g/dL (11.0-16.0)
[2016-06-19 06:32] LABS: BLOOD UREA NITROGEN 16 mg/dL (6-24); CALCIUM 7.8 mg/dL (8.5-10.5); CO2 22 mMol/L (22-32); CREATININE 0.8 mg/dL (0.6-1.3); ESTIMATED GFR (MDRD EQUATION) > 60; POTASSIUM 4.1 mMol/L (3.7-5.1)
[2016-06-19 06:34] LABS: ANION GAP 12.1 (10.0-19.0); CHLORIDE 116 mMol/L (96-110); SODIUM 146 mMol/L (135-145)
--- NOTE | 2016-06-19 16:25 | NUR ---
Significant Event:up to bathroom x2 unable to have BM, [place] 1 tab 0836, VSS, 840 in PO including prune juice, 750 po urine + 2 voids, BS 07-175 2 units, 11-184 2 units, 15-196 2 units, IV SL, walked in halls, will give Miralax yet today Follow up:
--- NOTE | 2016-06-20 04:51 | NUR ---
Significant Event: Patient alert and oriented X4. Forgetful at times. Repositions self often. Has R) BKA and L) 2nd toe amputaiton. Uses prosthetic, with walker and gait belt. ONe assist. IV to R) FA saline locked. Vitals stable and on room air. R) hand swollen, but better than on admission. Voiding per urinal. Son at bedside. ACHS accuchecks. Fell out of bed on 06/15. Working with PT. Has own walker in room (red). Betamethasone cream to penis. Belly distended and given miralax to help with BM. Follow up: Monitor for BM
[2016-06-20 06:07] LABS: BLOOD UREA NITROGEN 22 mg/dL (6-24); CALCIUM 7.9 mg/dL (8.5-10.5); CHLORIDE 114 mMol/L (96-110); CO2 23 mMol/L (22-32); CREATININE 0.8 mg/dL (0.6-1.3); ESTIMATED GFR (MDRD EQUATION) > 60; MAGNESIUM 2.1 mg/dL (1.8-2.6); SODIUM 145 mMol/L (135-145)
--- NOTE | 2016-06-20 13:13 | NUR ---
0730 Consult received indicating patient will need a group home placement for a short period of time before returning home. 0805 Contacted Nedra at [facility] to see if they have a male bed available as I faxed her patient's demographics last Monday. Nedra states she does have a male bed, but over the weekend they found out one of their staff has a male family member who is also needing placement so they may accept him instead of Mike. I faxed over all of Mike's information to her and she will review it and make a decision. I also faxed over patient's information to [facility], [facility], and [facility]. At 1105 I met with patient and sons Candelaria and Elba. Patient is in agreement with going to a group home facility for a short staff. He is hoping that he and his will get to be in the same facility when she discharges from [facility]. I let them all know that I faxed information and made referrals to all 4 nursing homes here in [place]. I explained the process to them and informed Mike that staff from the nursing homes may come and assess him. I encouraged the family to contact [facility] and find out when they will be making referrals for patient's spouse. At 1210 I received a phone call from Trevon MANZANO with [facility]. He has visited with patient and son Rosa Isela and he has a bed available for him. Trevon also said that they are in the process of remodeling a room and this should be ready by time patient's discharges from [facility] so Trevon is willing to look at her information too. He states he did explain to the family that he will have to evaluate patient's needs due to her recent cancer treatment to see if they can meet her needs at their facility as well. Son oRsa Isela stated he was going to call [facility] and ask them to send information to Trevon at [facility]. I notified Anselmo Prieto APRN following patient that [facility] has accepted patient. Anselmo thinks patient will be ready for discharge tomorrow. I will talk with Rosa Isela again and make sure they agree to [facility]. Will contiue to follow.
--- NOTE | 2016-06-20 14:54 | NUR ---
Diabetes center note: 0945 In review of patient's record, Med Recon. shows that patient was taking Lantus 28 units and Metformin 1000 mg BID. at home. A1C 9 % Patient was not in the room at the time of visit, son at bedside, who lives in [place], [place] states that he is assisting with patient's care at this time. Diabetes Management Booklet provided and a Diabetes Survival Skills checklist and son states that he and patient will review questions and CDE will stop back later today to assess educational needs. 1345 CDE returned to room and again patient was not in the room but son states that he and patient had completed the Diabetes Survival Skills checklist and they gave a copy to the nurse. When asked if they had any questions, son denies at this time and states patient gets his necessary supplies that he needs, denies needing any further assistance at this time. Plans for temporary placement to a nursing facility within the next fews days. Encouraged to notify us if further questions or concerns regarding diabetes management.
--- NOTE | 2016-06-20 17:06 | NUR ---
Significant Event: Patient is alert and oriented x3. Forgetful at times. VSS and on RA. Had gastric emptying study this AM. Now on a diabetic diet. Up with SBA. R)BKA, Left 2nd toe amputation. Tele on, no calls. Accuchecks AC/HS. Aloe vesta to the right hand daily. Denies pain. Did have a BM today- MOM was given. Started on colace. [facility] at 1300. Follow Up: Transfer tomorrow at 1300.
--- NOTE | 2016-06-21 04:28 | NUR ---
Pt. AA&OX3. Forgetful at times. VSS. RA. Diabetic Diet. Up with SBA. Tele on with no calls. ACCU checks ACHS. No insulin given this shift. PRN norco given at 0. Slept well through the night. Plans to go to [facility] tomorrow at 1300.
--- NOTE | 2016-06-21 10:47 | NUR ---
1025 received a phone call from Kory at [facility] wanting to know if we can plan discharge at 1100. I came to the floor at [address] Peterson and Anselmo Prieto APRN and we can plan discharge at 1130. I called Kory back at [phone] and told him 1130. Will fax discharge orders once signed by doctor.
[2016-06-21 12:04] LABS: ANION GAP 14.5 (10.0-19.0); BLOOD UREA NITROGEN 23 mg/dL (6-24); CALCIUM 8.6 mg/dL (8.5-10.5); CHLORIDE 108 mMol/L (96-110); CO2 23 mMol/L (22-32); ESTIMATED GFR (MDRD EQUATION) > 60; MAGNESIUM 2.4 mg/dL (1.8-2.6); POTASSIUM 3.5 mMol/L (3.7-5.1); SODIUM 142 mMol/L (135-145)
[2016-06-21 12:05] LABS: PHOSPHORUS 0.8 mg/dL (2.5-4.9)
--- NOTE | 2016-06-21 13:08 | NUR ---
Transfer note:Patient was admitted 06/16/16 with nausea, vomiting, fever. Had sepsis, cholecystitis, right hand osteomyelitis, dehydration, hypoglycemis, corornary artery disease, status post CABG, peripheral vascular disease, failure to thrive, asthma, depression. Does have a right below knee amputation, with prosthesis. He is alert and oriented. Is hard of hearing, has hearing aides. Is able to put on prosthesis himself. Is a stand by assist with his own wheeled walker. Is able to do adl's. Last BM was 06/20/16. Does have occasional problems with hypoglycemia. Meds were adjusted today. Cooperative with cares.
== END 2016-06-21 13:37 | DRG 871 ==
LOC: GMED 13:24 → GMSU 16:54
PROVIDERS: Emergency Medicine; Hospitalist; Internal Medicine; ADMIT Internal Medicine
DX: A41.9 Sepsis, unspecified organism (principal); G92 Toxic encephalopathy; J96.21 Acute and chronic respiratory failure with hypoxia; E44.0 Moderate protein-calorie malnutrition; K81.9 Cholecystitis, unspecified; E27.40 Unspecified adrenocortical insufficiency; E46 Unspecified protein-calorie malnutrition; M86.9 Osteomyelitis, unspecified; I25.10 Atherosclerotic heart disease of native coronary artery without angina pectoris; I73.9 Peripheral vascular disease, unspecified; J44.9 Chronic obstructive pulmonary disease, unspecified; J45.909 Unspecified asthma, uncomplicated; Z87.01 Personal history of pneumonia (recurrent); Z95.1 Presence of aortocoronary bypass graft; Z89.511 Acquired absence of right leg below knee; M54.5 Low back pain; K59.00 Constipation, unspecified; E11.649 Type 2 diabetes mellitus with hypoglycemia without coma; R54 Age-related physical debility; Z68.26 Body mass index [BMI] 26.0-26.9, adult
CPT/HCPCS: A9541; A9577; C9113; G0237; G0378; J1100; J1644; J2185; J2310; J2405; J3370; J7030

== ENCOUNTER 2016-07-13 10:30 | Observation (INO) | payer MEDICARE, OTHER ==
[~2016-07-13] VITALS: Ht 170.2 cm; Wt 74.5 kg
--- NOTE | ~2016-07-13 | DS ---
PATIENT'S NAME: ELIZABETH LOMELI [facility] AGE: 76 Y [address] ROOM: [place] [address] LOCATION: [facility] [place] ADMIT DATE: 07/13/2016 Discharge Summary DISCHARGE DATE: 07/15/2016 FAMILY PHYSICIAN: Ema Buck MD ATTENDING PHYSICIAN: Ema Buck FINAL DIAGNOSES: 1. Cellulitis of right hand. 2. History of traumatic oil injection injury to the hand three years ago. 3. History of methicillin-resistant Staphylococcus aureus to right hand in the past. 4. Asthma. 5. Chronic obstructive pulmonary disease. 6. Diabetes mellitus, type 2. 7. Chronic prednisone therapy. 8. Coronary artery disease. 9. Stable angina pectoris. 10. Gout. 11. Chronic low back pain. 12. Peripheral arterial disease. HOSPITAL COURSE: This elderly white male was admitted to the hospital after I saw him in the office with a marked swollen red right hand. In the past, he had presented with infection similar to this with an MRSA infection of the hand. I admitted him to the hospital, and put him on IV vancomycin. I got a Pharmacy consultation, and had him seen by the [facility] working with Dr. Johnston, Orthopedic surgeon/Hand surgeon. Please see notes in the chart and progress notes. The patient improved markedly here in the hospital with IV vancomycin. It was felt that he reached maximal hospital benefit, and I did not feel he needed to go out on further IV vancomycin or an oral agent. DISCHARGE INSTRUCTIONS: He was dismissed from the hospital on date shown in improved conditions, to follow up and see me in one week. He is to be seen earlier if he has fever, chills, or other problems. He has been set up to see Dr. Johnston in the office per his recommendation. DISCHARGE MEDICATIONS: As mentioned, dismissed on the med list shown. EMA BUCK MD PATIENT'S NAME: ELIZABETH LOMELI [facility] AGE: 76 Y [address] ROOM: [place] [address] LOCATION: [facility] [place] ADMIT DATE: 07/13/2016 Discharge Summary DISCHARGE DATE: 07/15/2016 FAMILY PHYSICIAN: Ema Buck MD ATTENDING PHYSICIAN: Ema Buck DRIVER SERVICE TECHNICIAN/modl /[id number] d: 07/21/16 0016 t: 08/06/16 1203, DISCHARGE SUMMARY
--- NOTE | ~2016-07-13 | CON ---
PATIENT'S NAME: ELIZABETH LOMELI [facility] AGE: 76 Y [address] ROOM: [address] [address] LOCATION: [facility] [place] ADMIT DATE: 07/13/2016 Consultation DISCHARGE DATE: FAMILY PHYSICIAN: EMA TALBERT MD ATTENDING PHYSICIAN: EMA TALBERT CHIEF COMPLAINT: Right hand swelling and numbness. HISTORY OF PRESENT ILLNESS: Elizabeth is a 76-year-old male, a patient of Dr. Talbert, who was admitted to the hospital by Dr. Talbert for cellulitis of the right hand is seen for an orthopedic consultation today in 3221 at [facility]. He does have a history of an oil injection injury approximately 3 years ago with subsequent cellulitis and MRSA and surgery with Dr. Johnston, and he has had a good result since. He developed swelling in the last approximately 30 hours with increased pain as a mild secondary concern, the swelling and stiffness of that right thenar eminence and particularly the right thenar webspace between the first and second metacarpals along with some numbness is his more pressing concern. He does not have significant pain with range of motion in his phalanges. He does not have any tendon dysfunction that he is aware of. He does have significant diabetes. He has had an amputation and does have a prosthesis that he ambulates on on his legs. He does use a wheelchair in the evenings. PAST MEDICAL HISTORY: Reviewed. MEDICATIONS: 1. Singulair 10 mg daily. 2. Lasix 20 mg daily. 3. Spironolactone 25 mg daily. 4. Metformin 1000 mg 1 twice daily. 5. Plavix 75 mg daily. 6. Theophylline 300 mg extended release 1 daily. 7. Terazosin 10 mg once daily. 8. Zofran 8 mg p.r.n. 9. Prednisone 10 mg 1 twice daily. 10. BD Pen Needle. 11. Gerry. 12. Allopurinol 300 mg daily. 13. Isosorbide mononitrate 30 mg extended release. 14. Fentanyl transdermal patch. 15. He is also on IV vancomycin upon admission to the hospital under Dr. Talbert' care along with his admit order medications. PATIENT'S NAME: ELIZABETH LOMELI [facility] AGE: 76 Y [address] ROOM: [address] [address] LOCATION: [facility] [place] ADMIT DATE: 07/13/2016 Consultation DISCHARGE DATE: FAMILY PHYSICIAN: EMA TALBERT MD ATTENDING PHYSICIAN: EMA TALBERT PAST SURGICAL HISTORY: Significant for the previous amputation of the leg as well as surgery 3 years ago for that and I and D and injection oil injury with a dorsal webspace incision noted, which is old and well healed, no drainage at all. He does have a history of coronary artery bypass graft. OBJECTIVE: GENERAL: Elizabeth is a 76-year-old male, he is alert, oriented, well developed, well nourished. He is seated in the bed at the [facility]. He does not appear to be in acute distress. MUSCULOSKELETAL: He does have swelling present approximately 30-50% larger than the contralateral hand. The swelling is in the right radial border region of the hand thenar eminence and the webspace. He does not have significant ulnar-sided swelling. His phalanges does have chronic degenerative changes. There is some firmness in the webspace. The thenar eminence is not particularly tight. There is no evidence of any compartment syndrome. He has no pain with extension, active or passive, of the phalanges. There is no evidence of an infection in the extensor or flexor tendon sheath regions. He does have a history of a lower extremity amputation and prosthesis as noted above. ASSESSMENT: 1. Right hand cellulitis, particularly in the webspace of the 1st and 2nd metacarpals. 2. History of an oil injection injury approximately 3 years ago, previous patient of Dr. Johnston surgically with a history of methicillin- resistant Staphylococcus aureus apparently as well. 3. Type 2 diabetes. 4. Prosthesis of the lower extremity for amputation. 5. Coronary artery bypass graft, coronary artery disease. PLAN: We discussed the options with him in detail. At this point, there is not an acute indication for surgery as he does not have any infection in the sheath. The options include giving the antibiotics a chance to work and proceeding with irrigation and debridement if necessary versus proceeding with an irrigation and debridement now. We will also discuss with Dr. Johnston to get his expert opinion from standpoint of hand surgery as well as from standpoint of previous patient of his. The fact that he does use a wheelchair at times, there is also a consideration for his mobility along with the prosthesis and again the prosthesis on and off with that hand. Certainly, it would be better for him to avoid surgery from the standpoint of mobilization and overall health. He does have peripheral artery disease along with the diabetes and a history of the previous oil injury, so he is definitely at high risk for complications in this hand. We discussed this in detail, and we will PATIENT'S NAME: ELIZABETH LOMELI [facility] AGE: 76 Y [address] ROOM: [address] [address] LOCATION: [facility] [place] ADMIT DATE: 07/13/2016 Consultation DISCHARGE DATE: FAMILY PHYSICIAN: EMA TALBERT MD ATTENDING PHYSICIAN: EMA TALBERT continue to follow him. He will let the nurses know or call us if his symptoms increase significantly. BERNICE SETHI FOR MD PIPO RUCKER/modl /[id number] CC: Ema Talbert MD d: 07/13/16 2104 t: 08/09/16 1713, CONSULTATION REPORT
--- NOTE | 2016-07-13 12:27 | NUR ---
Pt is 76 yo [address] Mccormick's office this morning. Patient's recently underwent a very large surgery for stomach cancer that involved removing more than just 2/3 of her stomach. She was in [place] for the surgery, then went to [facility] for rehab, then went to [facility] here in [place]. Patient was with her while she was in [place]. He did get a pneumonia while there. He then actually went to [facility] as well for some rehab for 2 weeks. He was just released on Monday, July 09. 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 Patient was hospitalized in May of 2016 for sepsis, etiology unk, pt says it was for his hand at that time as well. patient's right hand is edematous and moderate erythema. no drainage noted at this time. patient does use his hands to use his w/c which is his mode of transportation when he doesn't have his prosthesis on. patient did have nausea and then actually did vomit approx 75-100 ml of bile type liquid during interview. Education is given as documented. patient is very pleasant to visit with. states he has been for 57 years. Does appear to be a little depressed when he talks about his due to her recent cancer and surgery. pneumatics are on left leg per student nurse. fall and allergy bracelets are on. call light is within reach. patient denies needs at this time. report is given to TRISTAN Womack.
[2016-07-13 13:54] LABS: ALBUMIN 3.1 gm/dL (3.5-5.0); BLOOD UREA NITROGEN 13 mg/dL (6-24); CHLORIDE 109 mMol/L (96-110); CO2 23 mMol/L (22-32); CREATININE 0.8 mg/dL (0.6-1.3); ESTIMATED GFR (MDRD EQUATION) > 60; PHOSPHORUS 3.2 mg/dL (2.5-4.9); SODIUM 141 mMol/L (135-145)
--- NOTE | 2016-07-13 18:01 | NUR ---
Significant Event: PT ALERT AND ORIENTED. VSS ON RA, AFEBRILE. RBKA, PROSTHETIC. AMBULATES WITH SUPERVISION, CANE. DENIES PAIN. R HAND IS SWOLLEN, RED. XRAY DONE THIS AFTERNOON. STARTED ON IV VANCO. IV TO L FA, NS @ TKO. ADA DIET. ACHS, SUPPER WAS 71. PT C/O FEELING NAUSEATED. MD CURRENTLY HERE TO ADDRESS. UA NEEDED, PT C/O BURNING WITH URINATION. Follow up: [facility] FOR SAFETY, OBTAIN UA
[2016-07-13 21:38] LABS: BILIRUBIN URINE NEGATIVE (NEGATIVE); BLOOD URINE NEGATIVE /UL (NEGATIVE); COLOR URINE YELLOW (YELLOW); GLUCOSE URINE NEGATIVE (NEGATIVE); KETONE URINE NEGATIVE (NEGATIVE); LEUKOCYTES URINE NEGATIVE /UL (NEGATIVE); NITRITE URINE NEGATIVE (NEGATIVE); PROTEIN URINE NEGATIVE (NEGATIVE); SPEC GRAVITY URINE 1.015 (1.003-1.035); TURBIDITY URINE CLEAR (CLEAR); UROBILINOGEN URINE NORMAL (NORMAL)
--- NOTE | 2016-07-14 05:07 | NUR ---
Significant Event: RT HAND REMAINS QUITE EDEMATOUS ESPECIALLY AT BASE OF THUMB, PALM SIDE. ABLE TO WIGGLE FINGERS AND MOVE HAND WITHOUT C/O DISCOMFORT. PALM SIDE OF HAND REDENED. IV VANCOMYCIN GIVEN. PATIENT HAS FENTANYL PATCH ON THAT HE PLACED YESTERDAY AM. VOIDS WITHOUT DIFFICULTY. DENIES FURTHER NEEDS. SLEPT WELL. ACCU CHECK 126 AT HS AND NO INSULIN NEEDED PER MILD SLIDING SCALE. Follow up: MONITOR REDNESS/EDEMA RT HAND.
--- NOTE | 2016-07-14 16:48 | NUR ---
Significant Event: Patient up with 1 person standby assist. Right BKA with prosthesis. Diabetic diet. Patient's right hand very edematous- due to cellulitis- espically around base of thumb. Patient has denied pain thoughout day but does C/O stiffness and pressure in right hand. Able to move fingers but not clench fist fully. IV vancomycin given. IV in left forearm clotted, new IV placed in right forearm-good blood return. Patient placed fentynal patch on back yesterday morning. Last ACCU check 160. Follow up: monitor edema/pain.
--- NOTE | 2016-07-14 17:09 | NUR ---
SPOKE TO PATIENT REGARDING CM AND OUR ROLE. PATIENT LIVES ALONE IN OWN HOME, HIS SPOUSE IS AT [facility], HE REPORTS THAT HE HAS A SON THAT HELPS HIM WHEN HE NEEDS IT. PATIENT IS PLANNING ON RETURNING HOME ONCE HE IS READY FOR DISCHARGE. CM WILL CONT TO FOLLOW NEEDED.
--- NOTE | 2016-07-15 04:58 | NUR ---
Significant Event: PATIENT IS ALERT AND ORIENTED. VERY PLEASANT. IN WITH CELLULITIS OF RIGHT HAND. MINIMAL REDNESS IS NOTED. HE REPORTS IT IS MUCH APPROVED. PATIENT IS ON ROOM AIR. UP WITH X1 ASSIST. HAS RIGHT BELOW THE KNEE AMPUTATION. PROSTHESIS IN ROOM AT BEDSIDE. PATIENT REPORTS CHRONIC NUMBNESS/TINGLING TO BILATERAL LOWER EXTREMITIES. NORCO ADMINISTERED AT HS. ACHS ACCUCHESTS. ON MILD SCALE. FENTANYL PATCH TO BACK WHICH PATIENT PLACED AT HOME. Follow up:
--- NOTE | 2016-07-15 15:45 | NUR ---
DISCHARGE: Pt. was explained discharge instructions on cellulitis, no new medications. IV removed by primary nurse. Verbalized understanding of teaching, no questions or concerns. Will call on Monday to schedule f/u with Dr. Talbert. Left with all belongings and prescriptions. Taken to front door by aides and driven home by friend.
== END 2016-07-15 15:50 | disposition disaster alternative care site (69) ==
LOC: GMSU 10:31
PROVIDERS: ADMIT Family Medicine
DX: L03.113 Cellulitis of right upper limb (principal); E11.9 Type 2 diabetes mellitus without complications; I25.810 Atherosclerosis of coronary artery bypass graft(s) without angina pectoris; I73.9 Peripheral vascular disease, unspecified; Z86.14 Personal history of Methicillin resistant Staphylococcus aureus infection; Z79.899 Other long term (current) drug therapy; Z79.52 Long term (current) use of systemic steroids; Z79.84 Long term (current) use of oral hypoglycemic drugs; Z88.0 Allergy status to penicillin; Z88.1 Allergy status to other antibiotic agents; Z88.8 Allergy status to other drugs, medicaments and biological substances; Z98.890 Other specified postprocedural states
CPT/HCPCS: G0378; G0379; G8978; G8979; G8980; G8981; G8982; G8983; J3370; J7030; J7040; J7050; J7512

== ENCOUNTER 2016-10-20 13:57 | Inpatient (IN) | payer MEDICARE, OTHER ==
[~2016-10-20] VITALS: Ht 170.2 cm; Wt 78.3 kg
--- NOTE | ~2016-10-20 | CON ---
PATIENT'S NAME: ELIZABETH LOMELI [facility] AGE: 76 Y [address] ROOM: [address] [place], [place] [address] LOCATION: [facility] ADMIT DATE: 10/20/2016 Consultation DISCHARGE DATE: FAMILY PHYSICIAN: EMA TALBERT MD ATTENDING PHYSICIAN: LILIYA LISA DATE OF CONSULTATION: 10/21/2016 REFERRING PHYSICIAN: Liliya Lisa MD REASON FOR CONSULTATION: Acute kidney injury. HISTORY OF PRESENT ILLNESS: A 76-year-old male with history of diabetes and peripheral vascular disease, status post right BKA two years ago and recent left big toe amputation with cellulitis and underlying osteomyelitis at [facility], admitted with nausea, vomiting, and worsening pain in the amputation site along with possible infection. Creatinine on admission was 3.2. Baseline creatinine in June was 0.8. Nephrology consultation has been called for acute kidney injury. The patient had a prolonged hospital admission at [facility]. He did receive vancomycin in the beginning, and then followed by ciprofloxacin and then Bactrim for at least two weeks period when he developed nausea, vomiting, and also an JENNYFER episode with possible septic ATN versus toxic ATN from vancomycin, and creatinine peaking up to 4 range. The patient was seen by Dr. Esquivel at that time while admission at [facility]. Creatinine subsequently apparently improved, but we do not know the discharge level. Within two to three weeks, patient was felt to have significant pain and tenderness along with a mild fever, though during my evaluation, the left big toe amputation site appears to be little bit swollen and significantly tender. He has been started on Zyvox by the primary care physician. The creatinine on admission was 3.2, which is slightly lower this morning at 3.1. The patient does not significantly appear to be either volume overloaded or dehydrated. No urine studies yet. The patient denied any significant NSAIDs use. REVIEW OF SYSTEMS: GENERAL: Some chills and rigor, but no significant fever. HEENT: No sore throat. No sinus congestion. CVS: No chest pain. No exertional shortness of breath. No leg swelling. RESPIRATORY: No shortness of breath. No cough. No wheezing. GENITOURINARY: No pain with urination. No increased frequency. No nocturia. GASTROINTESTINAL: Significant nausea and vomiting. No abdominal pain. No abdominal distention. NEUROLOGIC: No weakness. No seizures. SKIN: Area around the left big toe amputation site is red, swollen, and erythematous. ALLERGIES: No seasonal allergy. No hayfever. ENDOCRINE: No heat intolerance. No cold intolerance. PSYCHIATRIC: No sadness. No crying spells. No history of panic attack. PAST MEDICAL HISTORY: 1. Type 2 diabetes. 2. Peripheral vascular disease. 3. Status post right BKA two years ago. 4. Status post left big toe amputation a few weeks ago at [facility]. 5. COPD. 6. Asthma, on chronic steroid. 7. Coronary artery disease, status post CABG.PATIENT'S NAME: ELIZABETH LOMELI [facility] AGE: 76 Y [address] ROOM: [address] [address] LOCATION: [facility] ADMIT DATE: 10/20/2016 Consultation DISCHARGE DATE: FAMILY PHYSICIAN: EMA TALBERT MD ATTENDING PHYSICIAN: LILIYA LISA PAST SURGICAL HISTORY: 1. Right BKA two years ago. 2. Recent left big toe amputation at [facility]. 3. CABG a few years ago. SOCIAL HISTORY: He denies smoking, alcohol, or drug use. FAMILY HISTORY: Father of complications of heart disease at the age 80. PHYSICAL EXAMINATION: VITAL SIGNS: Blood pressure was 130s over 70s, respiratory rate was 18, pulse rate was 86, saturating 95% to 96% on room air, and currently afebrile. GENERAL: Not in apparent distress. HEAD: Moist mucous membranes. Bilateral PERRLA, EOMI. NECK: No JVD, thyromegaly or lymphadenopathy. CVS: S1 and S2 normal, regular rate and rhythm. No murmur, rub, gallop. CHEST: Bilateral air entry equal. No wheeze or rales. ABDOMEN: Soft, nontender, nondistended. Bowel sounds present. EXTREMITIES: No dependent edema. There is right BKA. Left side has a great big toe amputation. The amputation stump appears to be dry and necrotic along a surrounding area of erythema and swelling. MUSCULOSKELETAL: No limitation of range of motion. SKIN: No pallor, cyanosis, icterus. ENGINEER SYSTEM ADMINISTRATOR: Alert and oriented x3. No gross findings. LABORATORY DATA: Lactate was 3.2. CBC: WBC count of 12.5, hemoglobin of 10.6, hematocrit of 33.4, and platelets of 291. Chemistry: Serum sodium was 141, potassium was 3.7, chloride was 107, bicarbonate was 26, BUN was 25, creatinine was 3.1, glucose was 91, calcium was 7.9, albumin was 2.5, AST was 10, ALT was less than 10, alkaline phosphatase was 58, total bilirubin was 0.8, magnesium was 1.8, phosphorus was 3.7, and ESR was 72. INR is 1.04 and PTT is 28. UA: Specific gravity is 1.005, pH is 7, LE is 2+, nitrite negative, protein negative, glucose negative, ketones negative, urobilinogen negative, bilirubin negative, blood negative, and 20 to 50 clumps of wbc's. PATIENT'S NAME: ELIZABETH LOMELI [facility] AGE: 76 Y [address] ROOM: [place] [address] LOCATION: [facility] ADMIT DATE: 10/20/2016 Consultation DISCHARGE DATE: FAMILY PHYSICIAN: EMA TALBERT MD ATTENDING PHYSICIAN: LILIYA LISA ASSESSMENT AND PLAN: 1. Acute kidney injury versus acute kidney injury on chronic kidney disease. Baseline creatinine in June was 0.8; however, had a history of recent acute kidney injury, which recovered, but I do not know the extent and degree of recovery. We will try to get old records from [facility] to see how was the creatinine at the time of discharge as well as a week ago when he followed with Dr. Talbert. The patient did receive vancomycin and ciprofloxacin and Bactrim, and also had significant sepsis at that time, which all can cause significant acute tubular necrosis. However, acute interstitial nephritis cannot be excluded either, but the patient was not on any urgent need for renal biopsy at this point, as possibly acute tubular necrosis or acute interstitial nephritis both will need conservative management at this point with significant infection and sepsis in the background. However, if creatinine does not improve significantly in the coming days, we may need to consider a renal biopsy for etiological diagnosis as well as prognostication. For now, our working diagnosis is septic/toxic acute tubular necrosis versus acute interstitial nephritis. We will continue to monitor intake and outputs strictly with daily standing weight. We will get a renal ultrasound. We will send for urinalysis and urine lytes including sodium, potassium, and creatinine osmolality, although patient does not look significantly volume depleted or overloaded, but just for gentle hydration purpose, we will continue normal saline at the rate of 50 mL/hr for twenty hours today. 2. Sepsis with left great toe ulcer and cellulitis at the recent amputation site. As mentioned in HPI, the patient is currently on Zyvox, possibly needs pseudomonal coverage considering that this might be a hospital- acquired infection and a recent hospital admission at [facility] for prolonged period of time. The patient also was on chronic steroid therapy that puts him at increased risk for acquiring resistant Gram-negative rods. Dr. Casper from Orthopedic Surgery will see him as the patient is well known to him, and he performed the amputation at the [facility]. 3. Type 2 diabetes. Continue patient's home medications and currently on low- dose sliding-scale insulin with fingerstick monitoring. We will defer further management as per the Primary team. 4. Nausea, vomiting, and anorexia, possibly from sepsis. He may have some contribution from azotemia as well. We do not see any urgent need for dialysis. We will closely monitor the renal function as well as the electrolyte panels. Thank you for allowing me to participate in this patient's care. I will closely monitor the patient's progress along with you. GLENDA ESCALONA MD /modl /[id number] d: 10/21/16 2244 t: 10/28/16 1657, CONSULTATION REPORT
--- NOTE | ~2016-10-20 | HP ---
PATIENT'S NAME: ELIZABETH LOMELI [facility] AGE: 76 Y [address] ROOM: [address] [place], [place] [address] LOCATION: [facility] ADMIT DATE: 10/20/2016 History & Physical DISCHARGE DATE: FAMILY PHYSICIAN: EMA TALBERT MD ATTENDING PHYSICIAN: LILIYA MOCTEZUMA DATE OF SERVICE: CHIEF COMPLAINT: Left toe pain, swelling, cellulitis, nausea, and vomiting. HISTORY OF PRESENT ILLNESS: This is a 76-year-old male, known history of peripheral vascular disease, status post right BKA 2 years ago, recent left big toe amputation due to osteomyelitis, presents with worsening nausea, vomiting, and worsening pain at the toe amputation site swelling. The patient tells me that he has had a lengthy hospitalization at [facility], which he was admitted about 3 weeks ago with nausea, vomiting, overall fever, chills, and at the time was found to have infected left big toe and amputation was conducted during that hospitalization. The patient apparently was put on antibiotics for that and seems to have some complications from that causing JENNYFER and creatinine at some point was as high as 4 and this has led to a complicated stay. The patient tells me that he left the hospital about 2 weeks [address] Dr[address] Talbert, his PCP, about a week ago and had been doing okay until 2 days where his symptoms of nausea, vomiting, and generalized anorexia increased. The patient apparently had been evaluated by GI during his last hospitalization since he had ongoing symptoms and does not appear that he has had anything definitive attempted other than supportive care. In any case, the patient today also has worsening pain, swelling, and erythema around the left toe amputation site. The patient does not report of any subjective fevers or chills other than pain on the site. Denies any abdominal pain, any dysuria, frequency, or urination- type symptoms. Denies any chest pain, cough, shortness of breath, dizziness, or lightheadedness as well. PAST MEDICAL HISTORY: 1. Peripheral vascular disease. 2. Status post right BKA. 3. Type 2 diabetes. 4. COPD. 5. Asthma. 6. Chronic steroids. 7. Coronary artery disease, status post CABG. SOCIAL HISTORY: The patient denies any history of smoking, alcohol, or drug use. PATIENT'S NAME: ELIZABETH LOMELI [facility] AGE: 76 Y [address] ROOM: [address] [place], [place] [address] LOCATION: [facility] ADMIT DATE: 10/20/2016 History & Physical DISCHARGE DATE: FAMILY PHYSICIAN: EMA TALBERT MD ATTENDING PHYSICIAN: LILIYA MOCTEZUMA FAMILY HISTORY: The patient reports that his father of complications of heart disease at the age of 80. REVIEW OF SYSTEMS: All systems have been reviewed and were all negative except as described in the HPI. PHYSICAL EXAMINATION: VITAL SIGNS: Afebrile, blood pressure 130s/70, respiratory rate 18, saturating 95% on room air. GENERAL: The patient is awake, alert, oriented x3, in no acute distress. HEENT: Moist mucous membranes. No scleral icterus. Conjunctival pallor noted. HEART: S1, S2. Regular rate and rhythm. ABDOMEN: Soft, nontender, nondistended. EXTREMITIES: Without edema. MUSCULOSKELETAL: No joint redness, effusion, erythema noted. SKIN: Left big toe erythema and swelling noted at recent amputation site. NEURO: Grossly nonfocal. NECK: Supple. No lymphadenopathy noted. LABORATORY DATA: Lactate 3.2, creatinine 3.2, baseline around 0.8. ASSESSMENT AND PLAN: 1. Left great toe ulcer and cellulitis at the recent amputation site. 2. Possible gangrenous tissue around the surgical site. Blood cultures drawn in the ED x2. We will use Zyvox 600 mg IV b.i.d. and watch for improvement. If erythema, swelling, and signs of infection worsens, at that point, we will consider adding antipseudomonal coverage noting the patient's recent history of lengthy hospitalization as well as immune compromise state with long-term chronic use of steroids as well as being a diabetic. Dr. Casper from Orthopedic Surgery will see him as the patient is well known to him and he appears to be the one that performed the amputation as well at [facility]. 3. Acute kidney injury. Creatinine is 3.2, baseline as of June was 0.8, but has had an acute kidney injury with creatinine greater than 4 during his recent hospitalization at [facility]. We will have Dr. Esquivel follow the patient during hospitalization as he had seen him at [facility] as well. 4. Type 2 diabetes. We will continue the patient's home medications and add low-dose sliding scale insulin and monitor a.c. and h.s. blood sugars. 5. Anorexia with diminished appetite and persistent nausea. He has had evaluations by GI at [facility] that does not appear that he has had definitive PATIENT'S NAME: ELIZABETH LOMELI [facility] AGE: 76 Y [address] ROOM: [place] [address] LOCATION: [facility] ADMIT DATE: 10/20/2016 History & Physical DISCHARGE DATE: FAMILY PHYSICIAN: EMA TALBERT MD ATTENDING PHYSICIAN: LILIYA MOCTEZUMA treatment for that. We will continue conservative care at this point and monitor and start him on clear liquid diet and advanced as tolerated. The patient continues to have persistent symptoms having GI re-evaluate him and may be warranted. 6. Peripheral vascular disease, status post left big toe amputation as well as right BKA about 2 years ago. Continue his cardiac medications. 7. Coronary artery disease with history of CABG. We will continue the patient's cardiac medications. 8. Deep venous thrombosis prophylaxis. We will use subcutaneous heparin. MD JEN DOWNS/josef /[id number] D: [id number] T: [id number] HISTORY & PHYSICAL
--- NOTE | ~2016-10-20 | CON ---
PATIENT'S NAME: ELIZABETH OTT [facility] AGE: 76 Y [address] ROOM: [address] [place], [place] [address] LOCATION: GPCU ADMIT DATE: 10/20/2016 Consultation DISCHARGE DATE: FAMILY PHYSICIAN: EMA TALBERT MD ATTENDING PHYSICIAN: LILIYA MOCTEZUMA REFERRING PHYSICIAN: Ranjan Casper MD REFERRING PHYSICIAN: Dr. Jasmine. REASON FOR CONSULT: Arrhythmia. HISTORY OF PRESENT ILLNESS: Mr. Ott is a pleasant 76-year-old male with history of peripheral vascular disease, status post right below-knee amputation 2 years ago and recent left big toe amputation due to osteomyelitis, who was admitted with nausea, vomiting, and worsening pain, had toe amputation along with swelling. He was recently hospitalized at [facility] about 3 to 4 weeks ago with nausea, vomiting, fever, and chills, and was found to have infected left big toe and amputation was conducted. The patient was treated with antibiotics and his treatment was complicated with acute kidney injury and worsening renal function. Subsequently, he was discharged and was followed up by his primary care physician, Dr. Talbert, and then he was admitted due to recurrent nausea, vomiting, and anorexia. The patient stated presently his nausea and vomiting has improved. He is being treated with antibiotics for sepsis. The patient was found to have tachycardia with heart rate in 120s to 130s, and hence Cardiology was consulted. The patient was apparently also treated for arrhythmia at [facility]. However, the records are not available. The patient denied any palpitations. He denied any chest pain. He has chronic mild shortness of breath. He has history of coronary artery disease, status post three-vessel coronary artery bypass graft about 4 to 5 years ago according to the patient. REVIEW OF SYSTEMS: The patient complained of mild diminution of vision and also complained of diminution of hearing. He has history of nausea and vomiting, however, presently, he denies any nausea or vomiting. No history of diarrhea or constipation. History of fever in the past, however, presently does not have any fever. No history of palpitations. No history of syncope. He has chronic mild discomfort in the left leg and also complained of numbness and discomfort in the right leg. Review of other systems was essentially negative. He is physically not very active. PAST MEDICAL HISTORY: 1. Peripheral vascular disease, status post right below-knee amputation. PATIENT'S NAME: ELIZABETH OTT [facility] AGE: 76 Y [address] ROOM: [address] [place], [place] [address] LOCATION: GPCU ADMIT DATE: 10/20/2016 Consultation DISCHARGE DATE: FAMILY PHYSICIAN: EMA TALBERT MD ATTENDING PHYSICIAN: LILIYA MOCTEZUMA 2. Type 2 diabetes. 3. COPD. 4. Asthma. 5. Coronary artery disease, status post coronary artery bypass graft. 6. Status post left knee replacement. SOCIAL HISTORY: The patient denies any history of alcohol or tobacco abuse. FAMILY HISTORY: The patient stated that his father of complication of heart disease and he was diagnosed to have [place] in his 70s. PHYSICAL EXAMINATION: VITAL SIGNS: His heart rate is 128 beats per minute, blood pressure is 127/67, and respiratory rate is 18. HEENT: Head is atraumatic and normocephalic. Pupils are bilaterally equal. Oral mucosa is moist. NECK: No significant jugular venous distention is present. GENERAL: The patient is obese. CARDIOVASCULAR: S1 and S2 are audible. They are regular in rate and rhythm. No audible murmur is present. RESPIRATORY: Bilateral vesicular breath sounds are audible. Breath sounds are diminished in bases. ABDOMEN: Abdomen is distended. No focal tenderness is present. EXTREMITIES: Right below-knee amputation is present. Left eschar brianna on the knee from previous surgery. Mild edema is present on the left ankle. Left great toe has dark eschar and second toe is status post amputation. NEUROLOGIC: The patient is awake, alert, and oriented. SKIN: Warm and dry. IMAGING: His most recent echocardiogram showed normal left ventricular and right ventricular size and systolic function, mild mitral annular calcification, and mild mitral regurgitation. His EKG showed possible sinus tachycardia with ventricular rate of 128 beats per minute, right bundle-branch block, and left axis deviation. LABORATORY DATA: Sodium 144, potassium 3.4, chloride 111, CO2 of 24, glucose 150, BUN 47, and creatinine 2.2. Troponin 0.045. BNP 583. TSH 0.6. White blood cell count 7.6, hemoglobin 7.5, hematocrit 22.5, and platelet count 177. His hemoglobin level was 11.5 on October 21 and subsequently down to 9.3, 8.6, and 7.3. MEDICATIONS: PATIENT'S NAME: ELIZABETH OTT [facility] AGE: 76 Y [address] ROOM: [address] [place], [place] [address] LOCATION: GPCU ADMIT DATE: 10/20/2016 Consultation DISCHARGE DATE: FAMILY PHYSICIAN: EMA TALBERT MD ATTENDING PHYSICIAN: LILIYA MOCTEZUMA His current cardiac medications include: 1. Metoprolol 12.5 mg b.i.d. 2. Clopidogrel 75 mg daily. 3. Ranolazine 500 mg at bedtime. ASSESSMENT: 1. Coronary artery disease, status post coronary artery bypass graft. 2. Tachycardia, atrial flutter with rapid ventricular rate versus atrial tachycardia. 3. Left great toe osteomyelitis, status post amputation and sepsis. 4. Status post right below-knee amputation. 5. Sepsis. 6. Diabetes mellitus type 2. 7. Nausea and vomiting, resolved. 8. Acute kidney injury, management per histotechnician. PLAN: We will continue medical therapy with Plavix since the patient has history of possible allergy to aspirin. We will increase the dose of metoprolol to 25 mg q.6 hours and titrate dose as needed. We will continue ranolazine. Will monitor the patient on telemetry. Patient is not an ideal candidate for long-term oral anticoagulation due to severe anemia and drop in hemoglobin. We will request for previous records from [facility]. We will continue to monitor the patient on telemetry. The tachycardia could be secondary to sepsis as well as severe anemia. Please consider correction of anemia. Treatment of underlying causes per hospitalist team. We will check fasting lipid profile and consider addition of statins. We will follow the patient along with you. Thank you for allowing us in taking part in the care of this pleasant patient. MD NICOLE ALMAGUER/modl /[id number] d: 10/26/162321 t: 10/28/161946, CONSULTATION REPORT
--- NOTE | ~2016-10-20 | DS ---
PATIENT'S NAME: ELIZABETH LOMELI [facility] AGE: 76 Y [address] ROOM: [address] [place], [place] [address] LOCATION: GPCU ADMIT DATE: 10/20/2016 Discharge Summary DISCHARGE DATE: 11/01/2016 FAMILY PHYSICIAN: Trae Talbert MD ATTENDING PHYSICIAN: Jessica Lisa ADMITTING DIAGNOSIS: Acute kidney injury. DISCHARGE DIAGNOSIS: Acute kidney injury with some improvement. SECONDARY DIAGNOSES: 1. Left great toe stump cellulitis. 2. Iaqmql-sc-lbedvoe iron deficiency. 3. Episode of aflutter. 4. Diabetes mellitus, type 2. 5. Hypertension. 6. Coronary artery disease, status post coronary artery bypass graft. CONSULTATIONS: Nephrology, Orthopedics, and also Cardiology. HISTORY OF PRESENT ILLNESS: The patient is a 76-year-old male with a known history of peripheral vascular disease, status post right BKA 2 years ago, recent left big toe amputation due to osteomyelitis, presenting with worsening nausea and vomiting, worsening pain, and amputation site swelling. The patient was recently admitted to [facility] with a lengthy hospitalization and had his left big toe amputated there. However, soon after discharge, the patient started having worsening of toe pain and associated with nausea and vomiting. HOSPITAL COURSE: On admission, the patient was noted to have cellulitis of the left great toe, stump infection, and also acute kidney injury. Initially on admission, his creatinine was noted to be 3.2 from a baseline of 1. Nephrology was consulted. Etiology most likely secondary to sepsis and/or antibiotic use of vancomycin at the other hospital. Nephrotoxic medications were held. The patient was followed by Nephrology during his stay. Also, the patient was placed on IV antibiotics initially and switched to doxycycline. The patient was seen by Dr. Casper, his Orthopedic Surgeon. The patient cellulitis improved while on doxycycline. The patient was also noted to have during his stay episodes of aflutter and was started on amiodarone per Cardiology. Discussion was made about anticoagulation; however, due to the patient's recent history of anemia and the patient also reports of history of easily bruising, anticoagulation was held. The patient currently on normal sinus rhythm and to follow up with his primary care physician and Cardiology Dr. Cheema about anticoagulation evaluation. The patient was also given 1 unit of packed red blood cells during stay and the patient to follow up with PATIENT'S NAME: ELIZABETH LOMELI [facility] AGE: 76 Y [address] ROOM: [address] [place], [place] [address] LOCATION: [facility] ADMIT DATE: 10/20/2016 Discharge Summary DISCHARGE DATE: 11/01/2016 FAMILY PHYSICIAN: Trae Talbert MD ATTENDING PHYSICIAN: Jessica Lisa primary care physician for possible GI evaluation. During his stay, the patient was seen by Physical Therapy and Occupational Therapy and was discharged home with Home Healthcare with PT/OT. CONDITION: Stable. DISPOSITION: Home with Home Health. DISCHARGE MEDICATIONS: See APR. DISCHARGE INSTRUCTIONS: The patient told if he has any chest pain, shortness of breath, fever, chills, and worsening of leg swelling, nausea and vomiting to go to the emergency department. FOLLOWUP: Follow up with Dr. Casper in 2 weeks, to follow up with Cardiology in 6 weeks, and follow up with Dr. Soriano, Nephrology in 2 weeks. PHYSICAL EXAMINATION: VITAL SIGNS: Stable. HEAD: Normocephalic, atraumatic. CHEST: Clear to auscultation bilaterally. HEART: Regular rate and rhythm. ABDOMEN: Soft, nontender, nondistended. SKIN: Mild erythema around the left toe stump. EXTREMITIES: No swelling. No tenderness. Right AKA. Greater than 30 minutes was spent on the patient's discharge planning. MD VIKA NGUYEN/josef /[id number] d: t: 11/02/16 0326, DISCHARGE SUMMARY
--- NOTE | ~2016-10-20 | ER ---
PATIENT'S NAME: ELIZABETH LOMELI [facility] AGE: 76 Y [address] ROOM: [place] [address] LOCATION: GICU ADMIT DATE: 10/20/2016 ER/Outpatient Report DISCHARGE DATE: FAMILY PHYSICIAN: EMA TALBERT MD ATTENDING PHYSICIAN: LILIYA LISA TIME OF PATIENT ARRIVAL: 1357 hours. TIME OF PATIENT EVALUATION: 1405 hours. CHIEF COMPLAINT: Nausea and vomiting. HISTORY OF PRESENT ILLNESS: This is a 76-year-old male who states that he had a recent hospitalization at [facility] and had MRSA to his left great toe. He states while he was there, he had some kidney issues and was evaluated by a kidney specialist. He states he never really ate very much food while he was there, but they still dismissed him home. He states he has continued to not feel well since he left 10 days ago. He has had nausea and vomiting every day since his dismissal. He states that he has had some loose stools. He denies any blood in his stool. He does not believe he has been running any fevers at home. No troubles with urination. He denies any abdominal pain. No chest pain. No new shortness of breath. He states his appetite has been down due to his nausea and vomiting. He did follow up with Dr. Talbert a couple of days ago and was told to continue his medications, but was not prescribed anything new. He comes here today with his , stating that he would like to know why he is not feeling well. ALLERGIES: ASPIRIN, PENICILLIN, AND CIPRO. PAST MEDICAL HISTORY: 1. Type 2 diabetes. 2. Peripheral vascular disease. 3. COPD. 4. Asthma. 5. Coronary artery disease, status post CABG. 6. He has had recent surgery to his left great toe. 7. He has a previous history of vbysb-yzw-byzl amputation on the right side. SOCIAL HISTORY: Denies smoking, drug, or alcohol use. Lives at home with his . PATIENT'S NAME: ELIZABETH LOMELI [facility] AGE: 76 Y [address] ROOM: [address] [address] LOCATION: GICU ADMIT DATE: 10/20/2016 ER/Outpatient Report DISCHARGE DATE: FAMILY PHYSICIAN: EMA TALBERT MD ATTENDING PHYSICIAN: LILIYA LISA REVIEW OF SYSTEMS: All systems were reviewed and were negative with the exception of those discussed in the HPI. PHYSICAL EXAMINATION: VITAL SIGNS: Weight 72.8 kg taken, blood pressure is 147/63, pulse 82, respirations 18, temperature 98.8 degrees tympanically, and saturation is 98% on room air. Sidra Coma Score is 15. GENERAL: Alert, calm male in no obvious distress. HEENT: Head: Normocephalic. He does display moist mucous membranes. Eyes: Pupils are equal and reactive to light. NECK: Supple. No lymphadenopathy. LUNGS: Diminished throughout. No wheezes or crackles noted. HEART: Regular rate and rhythm. ABDOMEN: Soft. It is nontender. He has good bowel sounds throughout. EXTREMITIES: His right lower extremity has a stump below the knee. He does have a prosthetic leg in place. His left lower extremity has a CAM walking boot on. We did remove that. His left great toe is swollen and erythemic. The distal aspect of the toe has necrotic flap tissue with sutures still in place. There is no purulent drainage from the site. NEUROLOGIC: Cranial nerves 2 through 12 grossly intact. Gait was not observed. LABORATORY DATA: CBC: White count is 16.3, hemoglobin is 11.9, platelets 230, ANC is 12.6. INR is 1.04. Sedimentation rate is 72. CMS: Sodium 140, potassium 3.9, BUN 28, creatinine is 3.2, and GFR is 18. Magnesium 1.8. CPK is 47, CK-MB is 1.5, and troponin-I is less than 0.040. CRP is 9.40. Procalcitonin is 0.94. Lactate is 3.2. Urinalysis was done via clean catch. UA micro: White blood cells 20 to 50, red blood cells negative, bacteria negative, white blood cell clumps few. EKG shows right bundle-branch block, this was seen on previous EKGs. Chest x- ray was stable. No pneumonia seen. He has some mild cardiomegaly noted. IMPRESSION: 1. Nausea and vomiting. 2. Left great toe ulcer and cellulitis with necrotic tissue. 3. Acute kidney injury. 4. Type 2 diabetes. ASSESSMENT AND PLAN: I did discuss the patient's care with Dr. Nascimento. Dr. Nascimento also evaluated the patient. We did culture his urine as well as 2 sets of blood cultures. We did start an IV, and we gave him IV fluids along with Zofran 4 mg IV. He rested comfortably his entire stay. The patient's care is Dr. Ema Talbert, so I did contact him. He would like me to give the patient to the Hospitalist PATIENT'S NAME: ELIZABETH LOMELI [facility] AGE: 76 Y [address] ROOM: [address] [place] [address] LOCATION: [facility] ADMIT DATE: 10/20/2016 ER/Outpatient Report DISCHARGE DATE: FAMILY PHYSICIAN: EMA TALBERT MD ATTENDING PHYSICIAN: LILIYA LISA. Therefore, I called Dr. Lisa who is on-call for the hospitalists, and he will admit the patient. We also contacted Dr. Casper regarding the patient as well. We will be turning the care over to the hospitalist and Dr. Casper at this time. The patient and the patient's understand and agree with care. CHAPARRO HICKS PA-C FOR MD KUSUM HENAO/josef /[id number] d: t: 10/25/16 1409, OUTPATIENT REPORT
--- NOTE | ~2016-10-20 | PUL ---
PATIENT'S NAME: ELIZABETH LOMELI [facility] AGE: 76 Y [address] ROOM: [place] [address] LOCATION: GPCU ADMIT DATE: 10/20/2016 Pulmonary DISCHARGE DATE: 11/01/2016 FAMILY PHYSICIAN: Trae Talbert MD ATTENDING PHYSICIAN: Jessica Lisa NAME OF PROCEDURE: Pulmonary Function Test DATE OF PROCEDURE: October 27, 2016 TECH: Betito, CANDE REASON FOR EXAM: Medication monitoring PROCEDURE PERFORMED: Spirometry. Measurement of diffusion capacity. RESULTS: Packager Head comments, patient was started on amiodarone therapy today. Patient has good effort but was notably short of breath to testing. FEV1 was 1.7 L, 65% of predicted and low. FVC was 2.44 L, 67% of predicted and low. FEV1/FVC was 70% and normal. DLCO was 54% of predicted. The flow volume loop pattern there is normal. REFERRING PHYSICIAN: Both FEV1 and FVC are low with normal FEV1 by FVC ratio ruling out any a airflow obstruction. Father assessment with lung volume measurements should be done to rule out any restrictive changes. There was moderate impairment in gas transfer. MD LESLI CARVAJAL/stephany /[id number] dtt: 11/01/16 1546 , dtd:
[2016-10-20 15:15] LABS: BASOPHIL # 0.1 K/uL (0.0-0.2); BASOPHIL % 0.4 %; EOSINOPHIL # 0.3 K/uL (0.0-0.5); EOSINOPHIL % 1.8 %; HEMATOCRIT 37.4 % (37.0-53.0); HEMOGLOBIN 11.9 g/dL (11.0-16.0); IMMATURE GRANULOCYTE # 0.2 K/uL (0.0-0.3); LYMPHOCYTE % 12.3 %; MCH 28.8 pg (27.0-34.0); MCHC 31.8 gm/dL (32.0-36.5); MCV 90.6 fl (83.0-98.0); MONOCYTE # 1.1 K/uL (0.0-1.0); MONOCYTE % 6.6 %; MPV 9.7 fl (9.4-12.4); NEUTROPHIL # (ANC) 12.6 K/uL (1.4-9.0); NEUTROPHIL % 77.9 %; NRBC % 0 /100WBC (0-0.00); PLATELET COUNT 330 K/uL (150-450); RBC 4.13 M/uL (3.50-5.50); RDW-CV 15.4 % (11.9-14.6); WBC 16.2 K/uL (4.0-11.0)
[2016-10-20 15:21] LABS: INR - (THERAPEUTIC) 1.04 (0.92-1.07); PROTIME 10.9 SECONDS (9.8-11.4); PTT 28 SECONDS (25-32)
[2016-10-20 15:27] LABS: ALK PHOS 69 IU/L (33-138); ALT 12 IU/L (12-78); ANION GAP 11.9 (10.0-19.0); AST 14 IU/L (10-40); BLOOD UREA NITROGEN 28 mg/dL (6-24); CALCIUM 8.6 mg/dL (8.5-10.5); CHLORIDE 105 mMol/L (96-110); CO2 27 mMol/L (22-32); CPK 47 IU/L (35-332); CREATININE 3.2 mg/dL (0.6-1.3); MAGNESIUM 1.8 mg/dL (1.8-2.6); POTASSIUM 3.9 mMol/L (3.7-5.1); SODIUM 140 mMol/L (135-145); TOTAL BILIRUBIN 0.7 mg/dL (0.0-1.5); TOTAL PROTEIN 6.8 g/dL (6.0-8.4)
[2016-10-20 15:32] LABS: BILIRUBIN URINE NEGATIVE (NEGATIVE); BLOOD URINE NEGATIVE /UL (NEGATIVE); COLOR URINE STRAW (YELLOW); GLUCOSE URINE NEGATIVE (NEGATIVE); KETONE URINE NEGATIVE (NEGATIVE); LEUKOCYTES URINE 100 /UL (NEGATIVE); NITRITE URINE NEGATIVE (NEGATIVE); PROTEIN URINE NEGATIVE (NEGATIVE); SPEC GRAVITY URINE 1.005 (1.003-1.035); TURBIDITY URINE CLEAR (CLEAR); UROBILINOGEN URINE NORMAL (NORMAL)
[2016-10-20 15:42] LABS: BACTERIA URINE NEGATIVE (NEGATIVE); EPITHELIAL URINE NEGATIVE #/HPF (NEGATIVE); RBC URINE NEGATIVE #/HPF (NEGATIVE); WBC CLUMPS URINE FEW (NEGATIVE); WBC URINE 20-50 #/HPF (NEGATIVE)
[2016-10-20] MEDS ORDERED: LASIX20 MG PO (19:57)
[2016-10-20] MEDS ORDERED: SODIUM BICARBO650 MG PO (20:42)
[2016-10-20] MEDS ORDERED: RANEXA ER500 MG PO (20:44)
[2016-10-21 04:28] LABS: BASOPHIL # 0.1 K/uL (0.0-0.2); BASOPHIL % 0.6 %; EOSINOPHIL # 0.2 K/uL (0.0-0.5); EOSINOPHIL % 1.9 %; HEMATOCRIT 33.4 % (37.0-53.0); HEMOGLOBIN 10.6 g/dL (11.0-16.0); IMMATURE GRANULOCYTE # 0.1 K/uL (0.0-0.3); IMMATURE GRANULOCYTE % 0.9 %; LYMPHOCYTE # 1.5 K/uL (0.8-4.0); LYMPHOCYTE % 12.1 %; MCHC 31.7 gm/dL (32.0-36.5); MCV 91.5 fl (83.0-98.0); MONOCYTE # 1.2 K/uL (0.0-1.0); MONOCYTE % 9.3 %; MPV 9.7 fl (9.4-12.4); NEUTROPHIL # (ANC) 9.4 K/uL (1.4-9.0); NEUTROPHIL % 75.2 %; NRBC % 0 /100WBC (0-0.00); PLATELET COUNT 291 K/uL (150-450); RBC 3.65 M/uL (3.50-5.50); RDW-CV 15.4 % (11.9-14.6); WBC 12.5 K/uL (4.0-11.0)
[2016-10-21 04:44] LABS: ALBUMIN 2.3 gm/dL (3.5-5.0); CALCIUM 7.9 mg/dL (8.5-10.5); CREATININE 3.1 mg/dL (0.6-1.3); PHOSPHORUS 3.7 mg/dL (2.5-4.9)
[2016-10-21 04:45] LABS: ANION GAP 11.7 (10.0-19.0); MAGNESIUM 1.8 mg/dL (1.8-2.6); POTASSIUM 3.7 mMol/L (3.7-5.1)
[2016-10-21] MEDS ORDERED: DURAGESIC 50MC50 MCG TOP (11:27)
[2016-10-21 12:40] LABS: BASOPHIL # 0.1 K/uL (0.0-0.2); BASOPHIL % 0.4 %; EOSINOPHIL # 0.1 K/uL (0.0-0.5); EOSINOPHIL % 0.6 %; HEMATOCRIT 35.1 % (37.0-53.0); HEMOGLOBIN 11.5 g/dL (11.0-16.0); IMMATURE GRANULOCYTE # 0.1 K/uL (0.0-0.3); IMMATURE GRANULOCYTE % 0.8 %; LYMPHOCYTE # 1.3 K/uL (0.8-4.0); MCH 29.1 pg (27.0-34.0); MCHC 32.8 gm/dL (32.0-36.5); MCV 88.9 fl (83.0-98.0); MONOCYTE # 1.4 K/uL (0.0-1.0); MONOCYTE % 8.4 %; MPV 9.7 fl (9.4-12.4); NEUTROPHIL # (ANC) 13.1 K/uL (1.4-9.0); NEUTROPHIL % 81.8 %; NRBC % 0 /100WBC (0-0.00); PLATELET COUNT 302 K/uL (150-450); RBC 3.95 M/uL (3.50-5.50); RDW-CV 15.4 % (11.9-14.6)
[2016-10-21 12:56] LABS: BICARBONATE 26.3 mmol/L (18.0-23.0); PCO2 37 mmHg (35-45); PO2 66 mmHg (80-90)
[2016-10-21 13:01] LABS: ALBUMIN 2.5 gm/dL (3.5-5.0); ANION GAP 12.7 (10.0-19.0); CALCIUM 8.1 mg/dL (8.5-10.5); CREATININE 3.3 mg/dL (0.6-1.3); PHOSPHORUS 2.7 mg/dL (2.5-4.9); POTASSIUM 3.7 mMol/L (3.7-5.1)
[2016-10-21 13:35] LABS: ALK PHOS 58 IU/L (33-138); AST 10 IU/L (10-40); TOTAL BILIRUBIN 0.8 mg/dL (0.0-1.5); TOTAL PROTEIN 6.2 g/dL (6.0-8.4)
[2016-10-21 13:36] LABS: ALT < 10 IU/L (12-78)
[2016-10-21 13:54] LABS: BICARBONATE 26.3 mmol/L (18.0-23.0); PCO2 37 mmHg (35-45); PO2 72 mmHg (80-90)
[2016-10-21 14:00] LABS: INR - (THERAPEUTIC) 1.21 (0.92-1.07); PROTIME 12.7 SECONDS (9.8-11.4)
[2016-10-21 20:43] LABS: BILIRUBIN URINE NEGATIVE (NEGATIVE); BLOOD URINE 10 /UL (NEGATIVE); COLOR URINE YELLOW (YELLOW); GLUCOSE URINE NEGATIVE (NEGATIVE); KETONE URINE NEGATIVE (NEGATIVE); LEUKOCYTES URINE 25 /UL (NEGATIVE); NITRITE URINE NEGATIVE (NEGATIVE); PROTEIN URINE 15 mg/dL (NEGATIVE); TURBIDITY URINE CLEAR (CLEAR); UROBILINOGEN URINE NORMAL (NORMAL)
[2016-10-21 20:49] LABS: RBC URINE NEGATIVE #/HPF (NEGATIVE)
[2016-10-21 20:50] LABS: BACTERIA URINE NEGATIVE (NEGATIVE); EPITHELIAL URINE 0-2 #/HPF (NEGATIVE); YEAST URINE FEW (NEGATIVE)
[2016-10-21 20:52] LABS: HYALINE CAST URINE RARE #/LPF (NEGATIVE)
[2016-10-22 06:08] LABS: BASOPHIL # 0.1 K/uL (0.0-0.2); BASOPHIL % 0.5 %; EOSINOPHIL # 0.1 K/uL (0.0-0.5); EOSINOPHIL % 0.9 %; HEMATOCRIT 29.7 % (37.0-53.0); HEMOGLOBIN 9.3 g/dL (11.0-16.0); IMMATURE GRANULOCYTE # 0.1 K/uL (0.0-0.3); IMMATURE GRANULOCYTE % 0.6 %; LYMPHOCYTE # 1.3 K/uL (0.8-4.0); LYMPHOCYTE % 10.6 %; MCH 28.3 pg (27.0-34.0); MCHC 31.3 gm/dL (32.0-36.5); MCV 90.3 fl (83.0-98.0); MONOCYTE # 1.2 K/uL (0.0-1.0); MONOCYTE % 9.5 %; MPV 10.2 fl (9.4-12.4); NEUTROPHIL # (ANC) 9.6 K/uL (1.4-9.0); NEUTROPHIL % 77.9 %; NRBC % 0 /100WBC (0-0.00); RBC 3.29 M/uL (3.50-5.50); RDW-CV 15.2 % (11.9-14.6); WBC 12.4 K/uL (4.0-11.0)
[2016-10-22 06:12] LABS: PLATELET COUNT 235 K/uL (150-450)
[2016-10-22 06:20] LABS: ANION GAP 12.7 (10.0-19.0); CREATININE 3.2 mg/dL (0.6-1.3); MAGNESIUM 1.4 mg/dL (1.8-2.6); PHOSPHORUS 3.9 mg/dL (2.5-4.9); POTASSIUM 3.7 mMol/L (3.7-5.1)
[2016-10-22 06:25] LABS: CALCIUM 6.9 mg/dL (8.5-10.5)
[2016-10-22 12:16] LABS: BICARBONATE 22.8 mmol/L (18.0-23.0); PCO2 36 mmHg (35-45); PO2 75 mmHg (80-90)
[2016-10-23 05:40] LABS: HEMATOCRIT 27.3 % (37.0-53.0); HEMOGLOBIN 8.6 g/dL (11.0-16.0); MCH 28.2 pg (27.0-34.0); MCHC 31.5 gm/dL (32.0-36.5); MCV 89.5 fl (83.0-98.0); MPV 10.5 fl (9.4-12.4); PLATELET COUNT 205 K/uL (150-450); RBC 3.05 M/uL (3.50-5.50); RDW-CV 15.2 % (11.9-14.6); WBC 14.9 K/uL (4.0-11.0)
[2016-10-23 05:55] LABS: ANION GAP 13.1 (10.0-19.0); CREATININE 2.8 mg/dL (0.6-1.3); MAGNESIUM 2.2 mg/dL (1.8-2.6); PHOSPHORUS 3.7 mg/dL (2.5-4.9); POTASSIUM 4.1 mMol/L (3.7-5.1)
[2016-10-23 05:59] LABS: ALBUMIN 1.8 gm/dL (3.5-5.0)
[2016-10-23 06:14] LABS: ABSOLUTE NEUTROPHIL CT (ANC) 13.9 K/uL (1.4-9.0); LYMPHOCYTE # 0.4 K/uL (0.8-4.0); LYMPHOCYTE % 3 %; MONOCYTE # 0.6 K/uL (0.0-1.0); SEGMENTED NEUTROPHIL # 13.9 K/uL (1.4-9.0); SEGMENTED NEUTROPHIL % 93 %
[2016-10-24 05:16] LABS: MPV 10.9 fl (9.4-12.4); WBC 10.3 K/uL (4.0-11.0)
[2016-10-24 05:20] LABS: HEMOGLOBIN 7.3 g/dL (11.0-16.0); MCH 29.2 pg (27.0-34.0); MCHC 33.2 gm/dL (32.0-36.5); PLATELET COUNT 161 K/uL (150-450)
[2016-10-24 05:31] LABS: ALBUMIN 2.1 gm/dL (3.5-5.0); CREATININE 2.5 mg/dL (0.6-1.3); MAGNESIUM 2.2 mg/dL (1.8-2.6); PHOSPHORUS 3.1 mg/dL (2.5-4.9)
[2016-10-24 05:59] LABS: ABSOLUTE NEUTROPHIL CT (ANC) 9.9 K/uL (1.4-9.0); BANDED NEUTROPHIL # 0.9 K/uL (0.0-0.1); BANDED NEUTROPHILS % 9 %; LYMPHOCYTE # 0.1 K/uL (0.8-4.0); LYMPHOCYTE % 1 %; MONOCYTE # 0.3 K/uL (0.0-1.0); SEGMENTED NEUTROPHIL % 87 %
[2016-10-24 12:09] LABS: ADENOVIRUS F 40/41 Not Detected (Not Detect); ASTROVIRUS Not Detected (Not Detect); C DIFFICILE TOXIN A/B Not Detected (Not Detect); CAMPYLOBACTER SPECIES Not Detected (Not Detect); CRYPTOSPORIDIUM Not Detected (Not Detect); CYCLOSPORA CAYETANENSIS Not Detected (Not Detect); E. COLI (EPEC) Not Detected (Not Detect); E. COLI (ETEC) Not Detected (Not Detect); E. COLI (STEC) Not Detected (Not Detect); ENTAMOEBA HISTOLYTICA Not Detected (Not Detect); GIARDIA LAMBLIA Not Detected (Not Detect); NOROVIRUS GI/ GII Not Detected (Not Detect); PLESIOMONAS SPECIES Not Detected (Not Detect); ROTAVIRUS A Not Detected (Not Detect); SALMONELLA SPECIES Not Detected (Not Detect); SAPOVIRUS Not Detected (Not Detect); SHIGELLA AND EIEC Not Detected (Not Detect); VIBRIO SPECIES Not Detected (Not Detect); YERSINIA ENTEROCOLITICA Not Detected (Not Detect)
[2016-10-25 06:14] LABS: HEMATOCRIT 22.9 % (37.0-53.0); MCHC 33.2 gm/dL (32.0-36.5); MCV 87.4 fl (83.0-98.0); MPV 10.7 fl (9.4-12.4); PLATELET COUNT 185 K/uL (150-450); RBC 2.62 M/uL (3.50-5.50); RDW-CV 15.4 % (11.9-14.6); WBC 7.9 K/uL (4.0-11.0)
[2016-10-25 06:15] LABS: HEMOGLOBIN 7.6 g/dL (11.0-16.0)
[2016-10-25 06:32] LABS: ALBUMIN 2.9 gm/dL (3.5-5.0); ANION GAP 11.5 (10.0-19.0); CREATININE 2.4 mg/dL (0.6-1.3); PHOSPHORUS 3.3 mg/dL (2.5-4.9); POTASSIUM 3.5 mMol/L (3.7-5.1)
[2016-10-25 06:34] LABS: CALCIUM 7.2 mg/dL (8.5-10.5)
[2016-10-25 07:04] LABS: ABSOLUTE NEUTROPHIL CT (ANC) 7.1 K/uL (1.4-9.0); BANDED NEUTROPHIL # 0.2 K/uL (0.0-0.1); BANDED NEUTROPHILS % 3 %; LYMPHOCYTE # 0.6 K/uL (0.8-4.0); LYMPHOCYTE % 8 %; MONOCYTE # 0.2 K/uL (0.0-1.0); SEGMENTED NEUTROPHIL # 6.9 K/uL (1.4-9.0); SEGMENTED NEUTROPHIL % 87 %
[2016-10-26 05:07] LABS: HEMATOCRIT 22.5 % (37.0-53.0); MCH 28.8 pg (27.0-34.0); MCHC 33.3 gm/dL (32.0-36.5); MCV 86.5 fl (83.0-98.0); MPV 10.4 fl (9.4-12.4); PLATELET COUNT 177 K/uL (150-450); RDW-CV 15.5 % (11.9-14.6); WBC 7.6 K/uL (4.0-11.0)
[2016-10-26 05:09] LABS: HEMOGLOBIN 7.5 g/dL (11.0-16.0)
[2016-10-26 05:21] LABS: ALBUMIN 2.5 gm/dL (3.5-5.0); ANION GAP 12.4 (10.0-19.0); CREATININE 2.2 mg/dL (0.6-1.3); MAGNESIUM 2.1 mg/dL (1.8-2.6); PHOSPHORUS 3.3 mg/dL (2.5-4.9); POTASSIUM 3.4 mMol/L (3.7-5.1)
[2016-10-26 05:22] LABS: CALCIUM 7.2 mg/dL (8.5-10.5)
[2016-10-26 05:33] LABS: ABSOLUTE NEUTROPHIL CT (ANC) 6.9 K/uL (1.4-9.0); BANDED NEUTROPHIL # 0.2 K/uL (0.0-0.1); BANDED NEUTROPHILS % 2 %; LYMPHOCYTE # 0.5 K/uL (0.8-4.0); LYMPHOCYTE % 7 %; MONOCYTE # 0.2 K/uL (0.0-1.0); SEGMENTED NEUTROPHIL # 6.8 K/uL (1.4-9.0); SEGMENTED NEUTROPHIL % 89 %
[2016-10-27 03:16] LABS: HEMATOCRIT 22.9 % (37.0-53.0); MCHC 33.2 gm/dL (32.0-36.5); MCV 87.4 fl (83.0-98.0); MPV 10.1 fl (9.4-12.4); PLATELET COUNT 167 K/uL (150-450); RBC 2.62 M/uL (3.50-5.50); RDW-CV 15.6 % (11.9-14.6); WBC 6.6 K/uL (4.0-11.0)
[2016-10-27 03:17] LABS: HEMOGLOBIN 7.6 g/dL (11.0-16.0)
[2016-10-27 03:26] LABS: ALBUMIN 3.3 gm/dL (3.5-5.0); ANION GAP 14.3 (10.0-19.0); POTASSIUM 3.3 mMol/L (3.7-5.1)
[2016-10-27 03:29] LABS: CALCIUM 7.2 mg/dL (8.5-10.5)
[2016-10-27 03:43] LABS: ABSOLUTE NEUTROPHIL CT (ANC) 6.1 K/uL (1.4-9.0); BANDED NEUTROPHIL # 0.1 K/uL (0.0-0.1); BANDED NEUTROPHILS % 2 %; LYMPHOCYTE # 0.3 K/uL (0.8-4.0); LYMPHOCYTE % 4 %; MONOCYTE # 0.2 K/uL (0.0-1.0); SEGMENTED NEUTROPHIL % 91 %
[2016-10-27 04:20] LABS: ADENOVIRUS F 40/41 Not Detected (Not Detect); ASTROVIRUS Not Detected (Not Detect); C DIFFICILE TOXIN A/B Not Detected (Not Detect); CAMPYLOBACTER SPECIES Not Detected (Not Detect); CRYPTOSPORIDIUM Not Detected (Not Detect); CYCLOSPORA CAYETANENSIS Not Detected (Not Detect); E. COLI (EPEC) Not Detected (Not Detect); E. COLI (ETEC) Not Detected (Not Detect); E. COLI (STEC) Not Detected (Not Detect); ENTAMOEBA HISTOLYTICA Not Detected (Not Detect); GIARDIA LAMBLIA Not Detected (Not Detect); NOROVIRUS GI/ GII Not Detected (Not Detect); PLESIOMONAS SPECIES Not Detected (Not Detect); ROTAVIRUS A Not Detected (Not Detect); SALMONELLA SPECIES Not Detected (Not Detect); SAPOVIRUS Not Detected (Not Detect); SHIGELLA AND EIEC Not Detected (Not Detect); VIBRIO SPECIES Not Detected (Not Detect); YERSINIA ENTEROCOLITICA Not Detected (Not Detect)
[2016-10-28 07:47] LABS: HEMOGLOBIN 9.4 g/dL (11.0-16.0); IMMATURE GRANULOCYTE # 0.1 K/uL (0.0-0.3); IMMATURE GRANULOCYTE % 0.6 %; LYMPHOCYTE # 0.6 K/uL (0.8-4.0); LYMPHOCYTE % 7.1 %; MCHC 33.5 gm/dL (32.0-36.5); MCV 84.1 fl (83.0-98.0); MONOCYTE # 0.4 K/uL (0.0-1.0); MONOCYTE % 5.4 %; NEUTROPHIL # (ANC) 7.1 K/uL (1.4-9.0); NEUTROPHIL % 86.9 %; NRBC % 0 /100WBC (0-0.00); PLATELET COUNT 185 K/uL (150-450); RDW-CV 17.2 % (11.9-14.6); WBC 8.2 K/uL (4.0-11.0)
[2016-10-28 07:48] LABS: HEMATOCRIT 28.1 % (37.0-53.0); MCH 28.1 pg (27.0-34.0); RBC 3.34 M/uL (3.50-5.50)
[2016-10-28 07:57] LABS: CALCIUM 7.6 mg/dL (8.5-10.5); CREATININE 1.8 mg/dL (0.6-1.3)
[2016-10-29 03:35] LABS: EOSINOPHIL # 0.1 K/uL (0.0-0.5); EOSINOPHIL % 1.4 %; HEMATOCRIT 29.4 % (37.0-53.0); HEMOGLOBIN 9.6 g/dL (11.0-16.0); IMMATURE GRANULOCYTE % 0.4 %; LYMPHOCYTE # 1.5 K/uL (0.8-4.0); LYMPHOCYTE % 16.7 %; MCH 27.5 pg (27.0-34.0); MCHC 32.7 gm/dL (32.0-36.5); MCV 84.2 fl (83.0-98.0); MONOCYTE # 0.7 K/uL (0.0-1.0); MPV 9.3 fl (9.4-12.4); NEUTROPHIL # (ANC) 6.6 K/uL (1.4-9.0); NEUTROPHIL % 73.5 %; NRBC % 0 /100WBC (0-0.00); PLATELET COUNT 153 K/uL (150-450); RBC 3.49 M/uL (3.50-5.50); RDW-CV 17.2 % (11.9-14.6)
[2016-10-29 03:52] LABS: CALCIUM 7.6 mg/dL (8.5-10.5); CREATININE 1.9 mg/dL (0.6-1.3)
[2016-10-29 04:05] LABS: ANION GAP 9.7 (10.0-19.0); POTASSIUM 2.7 mMol/L (3.7-5.1)
[2016-10-29 12:33] LABS: ALBUMIN 3.1 gm/dL (3.5-5.0); CALCIUM 7.5 mg/dL (8.5-10.5); PHOSPHORUS 2.1 mg/dL (2.5-4.9); POTASSIUM 4.1 mMol/L (3.7-5.1)
[2016-10-29 12:34] LABS: ANION GAP 12.1 (10.0-19.0)
[2016-10-30 05:36] LABS: ALBUMIN 3.4 gm/dL (3.5-5.0); CREATININE 1.8 mg/dL (0.6-1.3); MAGNESIUM 1.6 mg/dL (1.8-2.6); PHOSPHORUS 2.1 mg/dL (2.5-4.9); POTASSIUM 3.9 mMol/L (3.7-5.1)
[2016-10-30 05:39] LABS: ANION GAP 9.9 (10.0-19.0); CALCIUM 7.2 mg/dL (8.5-10.5)
[2016-10-31 07:01] LABS: BASOPHIL % 0.1 %; EOSINOPHIL # 0.5 K/uL (0.0-0.5); EOSINOPHIL % 4.8 %; HEMATOCRIT 27.2 % (37.0-53.0); HEMOGLOBIN 8.8 g/dL (11.0-16.0); IMMATURE GRANULOCYTE # 0.1 K/uL (0.0-0.3); LYMPHOCYTE # 1.7 K/uL (0.8-4.0); LYMPHOCYTE % 16.3 %; MCH 27.9 pg (27.0-34.0); MCHC 32.4 gm/dL (32.0-36.5); MCV 86.3 fl (83.0-98.0); MONOCYTE # 0.7 K/uL (0.0-1.0); MONOCYTE % 6.6 %; MPV 9.7 fl (9.4-12.4); NEUTROPHIL # (ANC) 7.5 K/uL (1.4-9.0); NEUTROPHIL % 71.2 %; NRBC % 0 /100WBC (0-0.00); PLATELET COUNT 124 K/uL (150-450); RBC 3.15 M/uL (3.50-5.50); RDW-CV 17.1 % (11.9-14.6); WBC 10.5 K/uL (4.0-11.0)
[2016-10-31 07:15] LABS: ALBUMIN 3.5 gm/dL (3.5-5.0); CALCIUM 7.8 mg/dL (8.5-10.5); CREATININE 1.7 mg/dL (0.6-1.3); MAGNESIUM 1.8 mg/dL (1.8-2.6); POTASSIUM 4.2 mMol/L (3.7-5.1)
[2016-10-31 07:16] LABS: ANION GAP 12.2 (10.0-19.0); PHOSPHORUS 1.5 mg/dL (2.5-4.9)
[2016-11-01 06:23] LABS: BASOPHIL % 0.1 %; EOSINOPHIL # 0.5 K/uL (0.0-0.5); EOSINOPHIL % 4.9 %; HEMATOCRIT 28.5 % (37.0-53.0); IMMATURE GRANULOCYTE # 0.5 K/uL (0.0-0.3); IMMATURE GRANULOCYTE % 4.8 %; LYMPHOCYTE # 1.8 K/uL (0.8-4.0); MCH 27.2 pg (27.0-34.0); MCHC 31.6 gm/dL (32.0-36.5); MCV 86.1 fl (83.0-98.0); MONOCYTE # 0.8 K/uL (0.0-1.0); MONOCYTE % 7.7 %; MPV 9.1 fl (9.4-12.4); NEUTROPHIL # (ANC) 6.9 K/uL (1.4-9.0); NEUTROPHIL % 65.5 %; NRBC % 0 /100WBC (0-0.00); PLATELET COUNT 122 K/uL (150-450); RBC 3.31 M/uL (3.50-5.50); RDW-CV 16.8 % (11.9-14.6); WBC 10.5 K/uL (4.0-11.0)
[2016-11-01 06:39] LABS: ALBUMIN 3.3 gm/dL (3.5-5.0); ANION GAP 11.4 (10.0-19.0); CREATININE 1.7 mg/dL (0.6-1.3); POTASSIUM 4.4 mMol/L (3.7-5.1)
[2016-11-01 06:44] LABS: PHOSPHORUS 1.8 mg/dL (2.5-4.9)
[2016-11-01] MEDS ORDERED: CORDARONE,PACE200 MG PO (11:15)
[2016-11-01] MEDS ORDERED: LIPITOR10 MG PO (11:15)
[2016-11-01] MEDS ORDERED: DOXYCYCLINE100 MG PO (11:16)
[2016-11-01] MEDS ORDERED: LOPRESSOR25 MG PO (11:34)
[2016-11-01] MEDS ORDERED: MYCOSTATIN OINT30 GM TOP (11:35)
[2016-11-01] MEDS ORDERED: PROTONIX40 MG PO (11:37)
[2016-11-01] MEDS ORDERED: FLORASTOR250 MG PO (11:38)
== END 2016-11-01 13:37 | disposition home health service (06) | DRG 564 ==
LOC: GMED 13:57 → GICU 16:34 → GMSU 16:34 → GICU 10-21 15:18 → GPCU 10-26 21:45
PROVIDERS: Emergency Medicine; Family Medicine; Internal Medicine; Internal Medicine Interventional Cardiology; Internal Medicine Nephrology; Nurse Practitioner; Nurse Practitioner Family; Physician Assistant; ADMIT Internal Medicine
PROC: 30233N1 Transfusion of Nonautologous Red Blood Cells into Peripheral Vein, Percutaneous Approach (ICD-10-PCS; principal; 2016-10-27)
DX: T87.44 Infection of amputation stump, left lower extremity (principal); A41.9 Sepsis, unspecified organism; J96.01 Acute respiratory failure with hypoxia; N17.0 Acute kidney failure with tubular necrosis; R65.21 Severe sepsis with septic shock; D62 Acute posthemorrhagic anemia; E11.40 Type 2 diabetes mellitus with diabetic neuropathy, unspecified; I50.33 Acute on chronic diastolic (congestive) heart failure; I48.92 Unspecified atrial flutter; I25.10 Atherosclerotic heart disease of native coronary artery without angina pectoris; J44.9 Chronic obstructive pulmonary disease, unspecified; D50.9 Iron deficiency anemia, unspecified; Z79.01 Long term (current) use of anticoagulants; Z89.511 Acquired absence of right leg below knee; Z79.52 Long term (current) use of systemic steroids; L97.529 Non-pressure chronic ulcer of other part of left foot with unspecified severity; E87.6 Hypokalemia; E83.42 Hypomagnesemia; I73.9 Peripheral vascular disease, unspecified
CPT/HCPCS: C1751; C9113; J0282; J1450; J1644; J1720; J1940; J2020; J2370; J2405; J3411; J3475; J3480; J7030; J7040; J7050; J7060; J7512; P9016; P9047